=== PATIENT | female | born 1945 | race Caucasian/White ===

== ENCOUNTER 2020-08-20 14:55 | Emergency (ER) | payer MEDICARE, SELFPAY ==
[2020-08-20] VITALS (11 sets, daily range): BP systolic 153–159; BP diastolic 86–97; PULSE 73–97; RESP 16–22; TEMP 36.5; O2SAT 93–98
--- NOTE | ~2020-08-20 | XR_ITS ---
EXAMINATION: XR chest 2V EXAM DATE: 08/20/2020 16:27 INDICATION: Shortness of breath, hypertension. Asthma. Dizziness. COVID exposure. TECHNIQUE: Frontal and lateral projections of the chest obtained and reviewed. Comparison is made to prior examination from 02/15/2016. FINDINGS: There is large gastroesophageal hiatal hernia. There is small to moderate amount of ill-de fined bilateral airspace disease suspected, could be edema or acute infectious process. Prior chest x -ray was in 2016 which means this could also be development of chronic interstitial lung disease. No pneumothorax or pleural effusion. Cardiomediastinal silhouette is normal. IMPRESSION: Development of ill-defined bilateral opacities, could be acute infectious process or ashly a. Can't exclude this is chronic interstitial lung disease. Large hiatal hernia. Reviewed, dictated and finalized at location B. DARD MACHINE STITCHER IMPRESSION: Development of ill-defined bilateral opacities, could be acute infe ctious process or edema. Can't exclude this is chronic interstitial lung diseas e. Large hiatal hernia.
--- NOTE | 2020-08-20 15:50 | ECG_ITS ---
Measurements Intervals [place] Rate: 69 P: 19 TX: 135 QRS: 2 QRSD: 85 T: 6 QT: 415 QTc: 447 Interpretive Statements SINUS RHYTHM BASELINE ARTIFACT- I, II, III, AVL, AVF NORMAL ECG Electronically Signed On 08-20-2020 16:00:57 WATER RESOURCE SPECIALIST by José Manuel Mcwilliams D.O.
[2020-08-20 16:06] LABS: Basophils Percent Auto 0.1 % (0.2-1.2); Eosinophils Absolute Auto 0.1 K/mm3 (0-0.3); Eosinophils Percent Auto 0.6 % (0-4.4); Hematocrit 39.1 % (37.0-47.0); Hemoglobin 12.9 g/dL (12.0-15.0); Immature Granulocyte Absolute 0.04 K/mm3 (0.00-0.031); Immature Granulocyte Percent A 0.5 % (0-0.5); Lymphocytes Absolute Auto 1.13 K/mm3 (0.9-3.2); Mean Corpuscular Volume 84.8 fl (80-100); Mean Platelet Volume 8.4 fl (7.4-10.4); Monocytes Absolute Auto 0.4 K/mm3 (0.1-0.6); Monocytes Percent Auto 5.1 % (2.6-8.5); Neutrophils Absolute Auto 6.5 K/mm3 (1.3-6.7); Neutrophils Percent Auto 79.7 % (45.5-73.1); Platelet Count Result 271 k/mm3 (150-375); Red Blood Count 4.61 M/mm3 (4.2-5.4); Red Cell Distribution Width 13.2 % (11.5-14.5); White Blood Count 8.1 K/mm3 (4.5-10.0)
[2020-08-20 16:18] LABS: Anion Gap 6 mmol/L (8-16); Blood Urea Nitrogen 11 mg/dL (7-17); Calcium 8.9 mg/dL (8.4-10.2); Carbon Dioxide 32 mmol/L (22-30); Chloride 101 mmol/L (98-107); Estimated CRCL calculation 78 ml/min; Estimated Glomerular Filt Rate > 60; Glucose 121 mg/dL (65-105); Potassium 3.9 mmol/L (3.4-5.0); Sodium 139 mmol/L (137-145)
--- NOTE | 2020-08-20 19:09 | PCRCNOTE ---
PT. REFUSED TO BE STUCK AGAIN FOR AN ABG; DR. WILCOX NOTIFIED OF REFUSAL.
--- NOTE | 2020-08-20 19:42 | ED.SOB ---
HPI - SOB/Dyspnea General Chief Complaint: Shortness of Breath/Dyspnea Stated Complaint: sob Time Seen by Provider: 08/20/20 17:21 Source: patient Limitations: no limitations History of Present Illness HPI Narrative: Patient is 75 years old white female presents with intermittent shortness of breath over the last 2 days with exertion, fever up to 101 2 days ago. Currently feeling that her head full of stuff. Patient was tested positive for Covid 8 days ago. Patient denies any chest pain, nausea, vomiting, diarrhea, abdominal pain or back pain. Related Data Allergies Allergy/AdvReac Type Severity Reaction Status Date / Time meperidine Allergy Severe ITCHY Verified 08/20/20 19:01 venom-honey bee Allergy Severe unknown Verified 08/20/20 19:01 adhesive Allergy Mild TAPE= Verified 08/20/20 19:01 BLISTERS codeine Allergy Unknown unknown Verified 08/20/20 19:01 Review of Systems Review of Systems: Narrative: CONSTITUTIONAL: Denies fever, chills, or sweats. EYES: Denies visual changes, redness, or discharge. ENT: Denies rhinorrhea, congestion, sore throat, or otalgia. CARDIOVASCULAR: Denies chest pain, palpitations, or edema. RESPIRATORY: Denies cough or dyspnea. GASTROINTESTINAL: Denies abdominal pain, nausea, vomiting, or diarrhea. GENITOURINARY: Denies dysuria or hematuria. SKIN: Denies rash or itching. MUSCULOSKELETAL: Denies back pain, joint pain, or myalgia. NEUROLOGIC: Denies headache, numbness, or weakness. PSYCHIATRIC: Denies anxiety or depression. FOR[facility]LY [facility], [facility] Family History Family History Father Malignant neoplasm of prostate Family history of malignant neoplasm of esophagus Other Family history of cardiovascular disease Social History Social History Smoking status: Former smoker Tobacco type: cigarettes Second hand tobacco smoke exposure: No Smoking end date: 06/27/87 Alcohol intake: never Exam Narrative: Exam Narrative: General appearance: Well-developed, well-nourished Skin: Normal color Head: Normocephalic, nontraumatic Eyes: Clear conjunctiva ENT: Oropharynx normal, ears normal, nose normal Neck: Supple, nontender Chest and respiratory: Airway patent, no respiratory distress, no accessory muscle use Heart: Regular rate/rhythm Abdomen: Soft, nontender, no organomegaly, quiet bowel sounds Vascular: Normal peripheral pulses, normal capillary refill. Musculoskeletal: Normal range of motion, nontender back Neurologic: Alert and oriented ?3, METHODS AND PROCEDURES ANALYST is normal as tested, no gross motor deficit Course Course Emergency Course: Stable Vital Signs Vital signs: Vital Signs Temperature 36.5 C 08/20/20 15:45 Pulse Rate 73 08/20/20 15:45 Respiratory Rate 19 08/20/20 15:45 Blood Pressure 153/92 H 08/20/20 15:45 Pulse Oximetry 97 08/20/20 15:45 Temperature 36.5 C 08/20/20 15:45 Pulse Rate 97 08/20/20 18:57 Respiratory Rate 16 08/20/20 18:57 Blood Pressure 159/97 H 08/20/20 18:57 Pulse Oximetry 98 08/20/20 18:57 MDM - SOB/Dyspnea MDM Narrative Medical decision making narrative: Patient symptoms high likely secondary to COVID-19 infection. Labs, chest x-ray, COVID-19 test ordered. Further plan to follow Differential Diagnosis Differential diagnosis: Likely community acquired pneumonia and other (COVID-19 infection) Lab Data Result diagrams: 08/20/20 15:53 08/20/20 15:53 Labs: Lab Results 08/20/20 08/20/20 Range/Units 15:53 15:53 WBC 8.1 (4.5-10.0) K/mm3 RBC 4.61 (4.2-5.4) M/mm3 Hgb 12.9 (12.0-15.0) g/dL Hct 39.1 (37.0-47.0) %
--- NOTE | 2020-08-20 19:52 | PC.NURSE ---
Called RT regarding ABGs. RT states patient was stuck without success x2. Per Dr. Freeman, no more attempts needed to be made for ABG draw.
[2020-08-21 20:38] LABS: SARS-CoV-2 RNA PCR Positive
== END 2020-08-20 21:04 | disposition home or self-care (01) ==
PROVIDERS: Emergency Medicine; Emergency Provider Emergency Medicine; PCP Internal Medicine
DX: U07.1 COVID-19 (principal); R06.00 Dyspnea, unspecified; Z87.891 Personal history of nicotine dependence
CPT/HCPCS: 36415; 71046; 80048; 85025; 93005; 99284; C9803; U0003; U0005

== ENCOUNTER 2023-10-07 09:43 | Outpatient (CLI) | payer MEDICARE, SELFPAY ==
--- NOTE | 2023-10-07 10:41 | ECG_ITS ---
SEE SCANNED COPY FOR CONFIRMED REPORT MTDD
[2023-10-07 11:12] LABS: Basophils Percent Auto 0.3 % (0.2-1.2); Eosinophils Absolute Auto 0.3 K/mm3 (0-0.3); Eosinophils Percent Auto 3.1 % (0-4.4); Hematocrit 39.5 % (37.0-47.0); Hemoglobin 12.1 g/dL (12.0-15.0); Immature Granulocyte Absolute 0.04 K/mm3 (0.00-0.031); Immature Granulocyte Percent A 0.4 % (0-0.5); Lymphocytes Absolute Auto 3.09 K/mm3 (0.9-3.2); Lymphocytes Percent Auto 34.5 % (18.3-44.2); Mean Corpuscular HGB Conc 30.6 g/dl (32-36); Mean Corpuscular Hemoglobin 27.1 pg (26-34); Mean Corpuscular Volume 88.4 fl (80-100); Mean Platelet Volume 8.8 fl (7.4-10.4); Monocytes Absolute Auto 0.7 K/mm3 (0.1-0.6); Monocytes Percent Auto 8.2 % (2.6-8.5); Neutrophils Absolute Auto 4.8 K/mm3 (1.3-6.7); Neutrophils Percent Auto 53.5 % (45.5-73.1); Platelet Count Result 245 k/mm3 (150-375); Red Blood Count 4.47 M/mm3 (4.2-5.4); Red Cell Distribution Width 13.9 % (11.5-14.5)
[2023-10-07 11:24] LABS: Urine Cotinine NEGATIVE
[2023-10-07 11:26] LABS: Albumin Level 4.2 g/dL (3.5-5.1); Anion Gap 4 mmol/L (4-12); Blood Urea Nitrogen 18 mg/dL (7-17); Calcium 9.5 mg/dL (8.4-10.2); Carbon Dioxide 33 mmol/L (22-30); Chloride 100 mmol/L (98-107); Estimated Glomerular Filt Rate 54; Glucose 83 mg/dL (65-110); Potassium 4.2 mmol/L (3.4-5.0); Sodium 137 mmol/L (137-145)
[2023-10-07 11:30] LABS: Hemoglobin A1C 5.8 % (<5.7)
== END 2023-10-07 09:44 | disposition home or self-care (01) ==
LOC: ANHSURGERY 09:48
PROVIDERS: PCP Nurse Practitioner Family; Visit Provider Orthopaedic Surgery
DX: M17.12 Unilateral primary osteoarthritis, left knee (principal); Z01.818 Encounter for other preprocedural examination
CPT/HCPCS: 80048; 80307; 82040; 83036; 85025; 86850; 86900; 86901; 87081; 87147; 87181; 93005

== ENCOUNTER 2023-10-20 01:09 | Day surgery (SDC) | payer MEDICARE, SELFPAY ==
[2023-10-07 09:59] VITALS: BMI 33.5
--- NOTE | 2023-10-07 10:21 | PC.NURSE ---
Report to the Outpatient Waiting Room, entrance under the green pavilion located off [facility], at time __0900 on date _10/20/23 . Planned Procedure Time: _1100 . Time changes happen often and if your time is changed the preop area will call you the afternoon before. - You and your visitor will be asked to self-screen and do not enter if you have any COVID symptoms. - A mask is optional within the hospital at this time. Patients may have clear liquids (water, carbonated beverages, clear teas, apple juice) until 3 hours prior to surgery(8:00AM) with a maximum of 20 ounces. - No food from midnight until time of surgery - Infants may have breast milk until 4 hours before surgery, formula 6 hours prior to surgery. - Children will be allowed to drink immediately following surgery. If applicable, please bring a bottle or sippy cup to assist with drinking. Juice, water, soda, and popsicles are readily available. For infants on formula, please bring formula the day of surgery. Pacifiers are allowed. Take the following medications with a SIP of water the morning of surgery: _SYMBICORT INHALER,BUSPIRONE,EYE DROPS,CARVEDILOL,DULOXETINE,HYDROCODONE IF NEEDED FOR PAIN,PREGABALIN DO NOT STOP ANY OF YOUR OTHER PRESCRIPTION MEDICATIONS PRIOR TO SURGERY ?EXCEPT THE FOLLOWING Medications to discontinue per physician __HOLD MELOXICAM 7 DAYS PRE OP PER DR CROSS.LAST DOSE 10/12/23 MAY TAKE TYLENOL IF NEEDED FOR PAIN.HOLD ALL VITAMINS AND SUPPLEMENTS 3 DAYS PRE OP .LAST DOSE 10/16/23 TOTAL JOINT CLASS 10/12/23 AT 10 AM Please no make-up, nail vietnamese, hairspray, perfume, deodorant, or body powder the day of surgery. No jewelry (including any body piercings) or valuables the day of surgery, leave them at home. Please take a shower or bath the night before, or the morning of, surgery with an antibacterial soap. Wear comfortable, loose fitting clothing. Children are encouraged to wear pajamas. - Jewelry must be removed prior to entering the operating room. Rings and piercings that are not removed may be cut off. - The hospital will not accept responsibility for valuables. - Please leave all valuables, including medications, at home the day of surgery. If you are going home after surgery, a licensed tractor driver must drive you home. - NO public transportation without another adult if you receive anesthesia. - We recommend that an adult stay with you for 24 hours following discharge. - We also recommend that you do not drive, make important decision, drink alcoholic beverages, or take any drugs that were not prescribed by your health care provider for at least 24 hours after your discharge time. Follow any additional instructions given to you from your surgeon. If you or anyone in your household have experienced Covid symptoms in the past week, please notify your surgeon or the nurse liaison at the phone number below for possible testing. VERBAL AND WRITTEN instructions given to __PATIENT AND SPOUSE STEVE and asked if any additional questions and then verbalized understanding. Patient advised to call surgeon office or pre surgery nurse liaison [phone] if any additional questions.
[2023-10-07 10:40] VITALS: BP 114/67; PULSE 68; RESP 18; TEMP 37.1; O2SAT 97
--- NOTE | 2023-10-19 14:47 | PM.IMHP ---
H&P: HPI History of Present Illness Date/Time: 10/19/23 14:47 Chief Complaint: severe lateral compartment osteoarthritis left knee with grade 3 valgus deformity measuring 21?. Narrative: Patient is a 78-year-old female with longstanding history of lateral compartment osteoarthritis of her left knee. She has been taking Advil on a regular basis and hydrocodone for chronic lower back pain and her left knee pain had been tolerable but over the past year these become more severe and her fear of falling has been significant because the knee is now giving out into valgus. With respect to her back she has no evidence of neurologic deficit. She does have history of peripheral neuropathy and reactive airway disease and history of iron deficiency anemia which has been treated. She quit smoking 1979. 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 Other hyperlipidemia Peripheral neuropathic pain Reactive airway disease without complication Visual field defect Surgical History Surgical History (Updated 10/11/23 @ 15:28 by Geneva Maria CMA) H/O shoulder surgery right History of ankle surgery right Presence of left artificial knee joint Family History Family History Father Malignant neoplasm of prostate Family history of malignant neoplasm of esophagus Other Family history of cardiovascular disease Social History Social History (Updated 09/28/23 @ 13:14 by Jessica Perales CMA) Smoking packs per day: 1 Smoking cigarettes per day: 20.0 Years smoked: 12 Smoking pack-years: 12.00 Smoking status: Former smoker Tobacco type: cigarettes Second hand tobacco smoke exposure: No Smoking end date: 06/27/87 Additional smoking assessment comments: DENIES ANY FORM OF TOBACCO USE Alcohol intake: never Substance use: never Substance use type: does not use Do You Feel Safe in your Home?: Yes Lack of Transportation: No Lack of Food: Never True Current Housing: I Have Housing Concerned About Future Housing: No Difficulty Paying Gas/Electric Bills: Decline to Answer Difficulty Paying for Meds: No Currently Unemployed: No Education: High School Diploma/GED Difficulty w/ Childcare or Family Care: No Living arrangements: with family Occupation/Education: retired Spiritual care concerns: No Meds Home Medications and Allergies Home Medications Medication Instructions Recorded Confirmed Type furosemide 20 mg tablet (Lasix) 10 mg PO QAM PRN edema #30 tabs 02/22/23 10/07/23 Rx rosuvastatin 10 mg tablet 10 mg PO DAILY #90 tabs 05/16/23 10/07/23 Rx pantoprazole 40 mg tablet,delayed See Rx Instructions .Route 06/28/23 10/07/23 Rx release .COMPLEX #90 tabs meloxicam 15 mg tablet See Rx Instructions .Route 07/12/23 10/07/23 Rx .COMPLEX #90 tabs albuterol sulfate 90 mcg/actuation 2 inh inhalation Q4-6H PRN 08/04/23 10/07/23 Rx aerosol inhaler (ProAir HFA) shortness of breath or wheezing #18 grams buspirone 7.5 mg tablet 7.5 mg PO BID #180 tabs 08/15/23 10/07/23 Rx carvedilol 12.5 mg tablet 12.5 mg PO TID #90 tabs 08/23/23 10/07/23 Rx cyclobenzaprine 10 mg tablet 10 mg PO TID PRN muscle spasm #90 08/29/23 10/07/23 Rx tabs duloxetine 60 mg capsule,delayed 60 mg PO BID #180 caps 09/05/23 10/07/23 Rx release budesonide-formoterol HFA 160 2 puff inhalation Q12H #10.2 grams 09/27/23 10/07/23 Rx mcg-4.5 mcg/actuation aerosol inhaler (Symbicort) cholecalciferol (vitamin D3) 25 25 mcg PO DAILY #90 caps 09/30/23 10/07/23 Rx mcg (1,000 unit) capsule hydrocodone 10 mg-acetaminophen 1 tablet PO Q8H pain #90 ta
[2023-10-20] VITALS (14 sets, daily range): BP systolic 109–158; BP diastolic 61–102; PULSE 68–101; RESP 11–20; TEMP 36.2–36.8; O2SAT 93–98; BMI 33.7
--- NOTE | ~2023-10-20 | XR_ITS ---
EXAMINATION: [id number] DATE: 10/20/2023 16:59 INDICATION: Postoperative evaluation following left total knee arthroplasty. TECHNIQUE: Anteroposterior and lateral views of the left knee were obtained. COMPARISON: None. FINDINGS: Cemented left total knee arthroplasty without patellar resurfacing appears well seated and in near an atomic alignment. No fractures identified. Expected postoperative subcutaneous and intra-articular g as. IMPRESSION: 1. Left total knee arthroplasty, negative for postoperative purposes. Reviewed, dictated and finalized at location A.
[2023-10-20] MEDS: ACETAMINOPHEN 500 MG TABLET 1000 MG PO ×2 (08:48→20:13)
[2023-10-20] MEDS: LACTATED RINGERS 1,000 ML 30 ML IV CONT ×2 (08:55→16:39)
[2023-10-20] MEDS: VANCOMYCIN 1,500 MG/NS 500 ML 1,500 MG/500 ML BAG 250 MG IVPB (09:08)
--- NOTE | 2023-10-20 09:53 | WPDANESEPPF ---
Anes - Initial Pre Proc Eval Procedure: Operation Date: 10/20/23 10:30 Proposed Procedures p Left Total Knee Arthroplasty - Brooks Arenas MD Date/Time: 10/20/23 09:53 Surgeon: Brooks Arenas MD Pre Op Diagnosis: oa left knee Patient Data Age: 78 Gender: F Height: 1.65 m Weight: 91.3 kg Last Vital Signs Temp 98.2 F 10/20/23 08:42 Pulse 68 10/20/23 08:42 Resp 16 10/20/23 08:42 BP 133/69 10/20/23 08:42 Pulse Ox 97 10/20/23 08:42 O2 Del Method Room Air 10/20/23 08:42 Allergies Allergy/AdvReac Type Severity Reaction Status Date / Time meperidine Allergy Severe ITCHY Verified 10/20/23 08:42 venom-honey bee Allergy Severe Swelling Verified 10/20/23 08:42 adhesive Allergy Mild TAPE= Verified 10/20/23 08:42 BLISTERS Home Medications Medication Instructions Recorded Confirmed Type furosemide 20 mg tablet (Lasix) 10 mg PO QAM PRN edema #30 tabs 02/22/23 10/20/23 Rx rosuvastatin 10 mg tablet 10 mg PO DAILY #90 tabs 05/16/23 10/20/23 Rx pantoprazole 40 mg tablet,delayed See Rx Instructions .Route 06/28/23 10/20/23 Rx release .COMPLEX #90 tabs meloxicam 15 mg tablet See Rx Instructions .Route 07/12/23 10/20/23 Rx .COMPLEX #90 tabs albuterol sulfate 90 mcg/actuation 2 inh inhalation Q4-6H PRN 08/04/23 10/20/23 Rx aerosol inhaler (ProAir HFA) shortness of breath or wheezing #18 grams buspirone 7.5 mg tablet 7.5 mg PO BID #180 tabs 08/15/23 10/20/23 Rx carvedilol 12.5 mg tablet 12.5 mg PO TID #90 tabs 08/23/23 10/20/23 Rx cyclobenzaprine 10 mg tablet 10 mg PO TID PRN muscle spasm #90 08/29/23 10/20/23 Rx tabs duloxetine 60 mg capsule,delayed 60 mg PO BID #180 caps 09/05/23 10/20/23 Rx release budesonide-formoterol HFA 160 2 puff inhalation Q12H #10.2 grams 09/27/23 10/20/23 Rx mcg-4.5 mcg/actuation aerosol inhaler (Symbicort) cholecalciferol (vitamin D3) 25 25 mcg PO DAILY #90 caps 09/30/23 10/20/23 Rx mcg (1,000 unit) capsule hydrocodone 10 mg-acetaminophen 1 tablet PO Q8H pain #90 tabs 10/06/23 10/20/23 Rx 325 mg tablet carboxymethylcellulose sodium 1 % 1 drp EACH EYE QID 10/07/23 10/20/23 History eye liquid gel drops vitamins A,C,K-lqkt-qkyclm 2,148 2 tablet PO BID 10/07/23 10/20/23 History mcg-113 mg-45 mg-17.4 mg tablet (PreserVision AREDS) mupirocin 2 % topical ointment 1 applic topical BID #22 grams 10/12/23 10/20/23 Rx pregabalin 50 mg capsule 50 mg PO BID #60 caps 10/14/23 10/20/23 Rx Patient hx anesthesia problems: none Family hx anesthesia problems: none Results Review: All pre-operative results and documents have been reviewed as part of the pre-operative evaluation. 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 Other hyperlipidemia Peripheral neuropathic pain Reactive airway disease without complication Visual field defect Surgical History Surgical History H/O shoulder surgery right History of ankle surgery right Presence of left artificial knee joint Family History Family History Father Malignant neoplasm of prostate Family history of malignant neoplasm of esophagus Other Family history of cardiovascular disease Social History Social History Smoking packs per day: 1 Smoking cigarettes per day: 20.0 Years smoked: 12 Smoking pack-years: 12.00 Smoking status: Former smoker Tobacco type: cigarettes Second hand tobacco smoke exposure: No Smoking end date: 06/27/87 Additional smoking assessment comments: D
--- NOTE | 2023-10-20 10:10 | WPDHPUPDATE1 ---
History and Physical Update Update Date/Time: 10/20/23 10:10 History and Physical has been reviewed, including an updated exam of the patient. There are NO changes in the patient's condition. Risks, benefits, and alternatives have been discussed and questions answered. Patient agrees to proceed with procedure.
[2023-10-20] MEDS: TRANEXAMIC ACID 1,000MG/ISO100 1,000 MG/100 ML BAG 200 MG IVPB (10:16)
[2023-10-20] MEDS: ceFAZolin SODIUM 1 GM VIAL 4 GM (10:50)
[2023-10-20] MEDS: ceFAZolin 2 GM/D5W 50 ML 2 GM/50 ML BAG IVPB (11:13)
[2023-10-20] MEDS: ceFAZolin SODIUM 1 GM VIAL 2 GM IV PUSH (15:09)
[2023-10-20] MEDS: SODIUM CHLORIDE 0.9% IV 37.7 ML, MORPHINE SULFATE INJ (*CRX) 2 MG, ROPivacaine HCL 1% 2... INFILTRATE (15:09)
[2023-10-20] MEDS: TRANEXAMIC ACID 1,000 MG/10 ML AMPUL 1000 MG IV PUSH (15:22)
--- NOTE | 2023-10-20 16:46 | W.PM.PROC2 ---
Procedure Note - Detailed Date of Procedure 10/20/23 Pre-op Diagnosis oa left knee Post-op Diagnosis Same Procedure Performed Severe lateral compartment osteoarthritis with 10 degree flexion contracture and 21 degree anatomic axis valgus alignment on AP x-ray, left knee Surgeon Brooks Arenas MD Wirer Greyson Anesthesia General Description of Procedure Patient was brought to the operating room and general anesthesia was administered. Under anesthesia she had fixed 10 degree flexion contracture and valgus deformity in the left knee. Left leg was prepped draped usual fashion. She received 2 g of Ancef weight based vancomycin 1 g of tranexamic acid preoperatively. Limb was exsanguinated tourniquet elevated to 300 mmHg. A 7 in longitudinal midline incision was used. Vastus medialis splitting approach utilized. Infrapatellar and suprapatellar fat pads were excised quadriceps synovectomy carried out. Minimal lateral facetectomy performed. The articular cartilage was intact with mild diffuse chondromalacia on the patella and I felt it was suitable for non re surfacing. Guide jordi was inserted down the femoral canal after aspiration of canal contents using the 5 degree valgus cutting bushing 9 mm of bone removed the distal femur. Next the tibial plateau was cut. We removed about 5 mm from the center of the medial tibial plateau which gave us a skim cut just underneath the low point of the wear area of the lateral plateau. Cut was made perpendicular to the axis of the tibia. The meniscal remnants were excised the PCL was recessed from the femur and provisional posterior central capsular release from the distal femur was performed. Flexion gap measured 8 mm medially and 12 mm the sizing guide was applied to distal femur set at 5? of external rotation which matched Whitesides line. Posterior referencing pinholes were placed and the femur was cut to a size 65 vanguard. We were quite tight laterally in extension as predicted and IT band release was carried out from lateral margin of the patellar tendon to the popliteus tendon and the posterolateral corner capsule released level of the tibial cut preserving the lateral collateral ligament and the popliteus tendon. With this we were still clearly too tight in extension laterally to except 10 poly trial. Additional 2 mm of bone removed the distal femur. Posterior femoral osteophytes removed and a thorough posterior capsule release was performed as with flexion contracture. The the tibia was sized to a 71 placed to proper rotation and punched with the keel punch. We removed an additional mm of bone from the distal femur and trialed with the 10 insert. The knee came out to full extension with 1 mm of lateral opening but 6 mm of medial opening I felt this was too unstable to accept and as anticipated we needed to proceed with preparation for a constrained femur and poly insert. The 360 femur trial was placed on the femur and it was pinned in place and the intercondylar box for the SSK was prepared and the boss Reamer used to accept a 40 mm. Jordi extension attached to femoral component. We trialed with the 10 SSK trial. The came out to full extension with a mm of play laterally and gravity flexion of 125. However at 70? and 50? of flexion there was too much anterior play. We trialed with the 12 and this lacked 2 or 3? of extension with a barely positive bounce. The appropriate stability though and mid flexion and flexion and still had gravity flexion to 125. I felt the 12 was a better choice. We reapplied the distal femoral cutting block removed 1 more mm of bone from the distal femur and revisited the chamfer cuts and the intercondylar box roof cut and trialing again with the 12 SSK trial the knee came just to full extension with negative bounce. No play laterally but at 5? of flexion there is a mm play laterally and this time it 70 and 50? there is anterior play but no anterior subluxation. We had put the mariusz
[2023-10-20] MEDS: fentaNYL CITRATE INJ (*CRX) 100 MCG/2 ML VIAL 25 MCG IV PUSH ×8 (17:20→17:52)
--- NOTE | 2023-10-20 17:20 | PM.PNORT ---
Progress Note: A&P Assessment and Plan (1) Osteoarthritis of left knee: Qualifiers: Osteoarthritis type: primary Qualified Code(s): M17.12 - Unilateral primary osteoarthritis, left knee Code(s): M17.12 - Unilateral primary osteoarthritis, left knee Status: Acute Subjective Subjective Date/Time Seen: 10/20/23 17:20 Exam Extrem: Other: In the recovery room at 5:20 p.m. patient has full active dorsiflexion of her ankle and toes and denies numbness light touch testing in the foot and ankle. Objective Data Vital Signs Vital Signs: Vital Signs - 24 hr 10/20/23 08:42 10/20/23 16:39 10/20/23 16:50 Temperature 36.8 C 36.2 C L Pulse Rate 68 95 98 Respiratory Rate 16 17 20 Blood Pressure 133/69 144/81 H 154/84 H Pulse Oximetry 97 97 97 Oxygen Delivery Room Air Simple Face Mask Simple Face Mask Oxygen Flow Rate 8 8 10/20/23 17:05 Temperature Pulse Rate 97 Respiratory Rate 20 Blood Pressure 156/87 H Pulse Oximetry 98 Oxygen Delivery Simple Face Mask Oxygen Flow Rate 8 Intake/Output Intake/Output: Intake & Output 10/17/23 10/18/23 10/19/23 10/20/23 23:59 23:59 23:59 23:59 Intake Total 150 Balance 150 Meds/Results Medications: Active Medications Generic Name Dose Route Start Last Admin Trade Name Freq PRN Reason Stop Dose Admin Fentanyl Citrate 25 mcg 10/19/23 14:08 Fentanyl Citrate Inj (*Crx) 100 Mcg/2 Ml Vial IV PUSH Q2M PRN Pain Lactated Ringer's 1,000 mls @ 30 mls/hr 10/19/23 14:10 10/20/23 08:55 Lr - Lactated Ringers Iv IV CONT 30 mls/hr .Q24H VIOLETA Administration Lactated Ringer's 1,000 mls @ 30 mls/hr 10/19/23 14:10 Lr - Lactated Ringers Iv IV CONT .Q24H VIOLETA Ondansetron HCl 4 mg 10/19/23 14:08 Ondansetron Inj 4 Mg/2 Ml Vial IV PUSH ONCE PRN Nausea Radiology Results: ITS Impressions Knee X-Ray 10/20/23 17:03 IMPRESSION: 1. Left total knee arthroplasty, negative for postoperative purposes.
[2023-10-20] MEDS: HYDROmorphone HCL INJ (*CRX) 1 MG/ML SYR 0.5 MG IV PUSH ×4 (18:10→19:00)
[2023-10-20] MEDS: ceFAZolin 1 GM/NS 50 ML 1 GM/50 ML BAG IVPB (20:12)
[2023-10-20] MEDS: oxyCODONE HCL (*CRX) 5 MG TAB IR PO (20:12)
[2023-10-20] MEDS: DULoxetine HCL 60 MG CAPSULE.DR PO (20:13)
[2023-10-20] MEDS: PREGABALIN (*CRX) 50 MG CAPSULE PO (20:13)
[2023-10-20] MEDS: carvediloL 12.5 MG TABLET PO (20:13)
[2023-10-20] MEDS: busPIRone HCL 2.5 MG, busPIRone HCL 5 MG 7.5 MG PO (20:14)
[2023-10-20] MEDS: SENNA/DOCUSATE SODIUM TABLET 2 TAB PO (20:14)
[2023-10-20] MEDS: ARTIFICIAL TEARS OPHTH SOLN 15 ML BOTTLE 1 DROP EACH EYE (20:15)
[2023-10-20] MEDS: MUPIROCIN 2% OINT 22 GM TUBE 1 APPLIC TOPICAL (20:15)
--- NOTE | 2023-10-20 20:52 | ADMGEN ---
This patient, Maddie Rodriguez, was admitted to Medical Room 343-01. Patient/family oriented to hospital policies and general routines including ID bracelet, bed and alarms, visiting hours, pain management, procedures, bathroom and other care routines, personal items, smoking policy, room service/diet, and visiting hours. Information on how to activate the Rapid Response Team has been discussed. Patient/Family are encouraged to report perceived risks to care and to ask questions if they do not understand what they are told or what they should do.
[2023-10-20] MEDS: VANCOMYCIN 1,000 MG/NS 250 ML 1,000 MG/250 ML BAG 250 MG IVPB (21:05)
[2023-10-20] MEDS: FLUTICASONE/SALMETEROL 115-21 MCG INHALER 1 PUFF 2 PUFF INHALATION (22:12)
[2023-10-21] MEDS: oxyCODONE HCL (*CRX) 5 MG TAB IR PO ×5 (00:06→17:10)
[2023-10-21 01:14] VITALS: BP 105/59; PULSE 92; RESP 21; TEMP 37.1; O2SAT 100
[2023-10-21] MEDS: ACETAMINOPHEN 500 MG TABLET 1000 MG PO ×3 (03:07→13:05)
[2023-10-21] MEDS: ceFAZolin 1 GM/NS 50 ML 1 GM/50 ML BAG IVPB ×2 (03:07→13:05)
[2023-10-21 06:00] VITALS: BP 109/56; PULSE 95; RESP 16; TEMP 36.6; O2SAT 95
--- NOTE | 2023-10-21 07:34 | WPDANESPN ---
Anes - Prog Note Post-Op Date/Time: 10/21/23 07:34 Cardiovascular status: normal Respiratory status: normal Airway patency: baseline Mental status: baseline Post-Op hydration status: normal Vital Signs: Last Vital Signs Temp 97.9 F 10/21/23 06:00 Pulse 95 10/21/23 06:00 Resp 16 10/21/23 06:00 BP 109/56 L 10/21/23 06:00 Pulse Ox 95 10/21/23 06:00 O2 Del Method Nasal Cannula 10/20/23 22:37 O2 Flow Rate 2 10/20/23 22:37 Pain Score (VAS): 0/10 I/O: Intake & Output 10/20/23 10/20/23 10/21/23 15:59 23:59 07:59 Intake Total 150 300 650 Balance 150 300 650 Post-procedural complaints: none Patient Feedback: Patient satisfied with anesthetic care.
[2023-10-21 08:09] LABS: Hematocrit 29.5 % (37.0-47.0); Hemoglobin 9.4 g/dL (12.0-15.0); Mean Corpuscular HGB Conc 31.9 g/dl (32-36); Mean Corpuscular Hemoglobin 27.5 pg (26-34); Mean Corpuscular Volume 86.3 fl (80-100); Mean Platelet Volume 8.7 fl (7.4-10.4); Platelet Count Result 204 k/mm3 (150-375); Red Blood Count 3.42 M/mm3 (4.2-5.4); Red Cell Distribution Width 14.3 % (11.5-14.5); White Blood Count 17.9 K/mm3 (4.5-10.0)
[2023-10-21 08:20] LABS: Anion Gap 2 mmol/L (4-12); Blood Urea Nitrogen 16 mg/dL (7-17); Calcium 8.3 mg/dL (8.4-10.2); Carbon Dioxide 30 mmol/L (22-30); Chloride 105 mmol/L (98-107); Estimated CRCL calculation 65 ml/min; Estimated Glomerular Filt Rate > 60; Glucose 128 mg/dL (65-110); Potassium 3.7 mmol/L (3.4-5.0); Sodium 137 mmol/L (137-145)
[2023-10-21] MEDS: FLUTICASONE/SALMETEROL 115-21 MCG INHALER 1 PUFF 2 PUFF INHALATION (08:52)
[2023-10-21 08:54] VITALS: PULSE 100; RESP 20; O2SAT 95
[2023-10-21] MEDS: OPTI-GEN TAB 2 TABLET PO ×2 (09:35→17:08)
[2023-10-21] MEDS: PREGABALIN (*CRX) 50 MG CAPSULE PO ×2 (09:35→17:09)
[2023-10-21] MEDS: ROSUVASTATIN 10 MG TABLET PO (09:35)
[2023-10-21] MEDS: APIXABAN 2.5 MG TABLET PO (09:35)
[2023-10-21] MEDS: CHOLECALCIFEROL 1,000 UNITS TABLET 1000 UNITS PO (09:35)
[2023-10-21] MEDS: PANTOPRAZOLE 40 MG TABLET PO (09:35)
[2023-10-21] MEDS: SENNA/DOCUSATE SODIUM TABLET 2 TAB PO ×2 (09:35→17:10)
[2023-10-21] MEDS: DULoxetine HCL 60 MG CAPSULE.DR PO (09:35)
[2023-10-21] MEDS: CELECOXIB 200 MG CAPSULE PO (09:35)
[2023-10-21] MEDS: polyethylene glycoL 3350 17 GM POWD.PACK PO (09:36)
[2023-10-21] MEDS: busPIRone HCL 2.5 MG, busPIRone HCL 5 MG 7.5 MG PO (09:36)
[2023-10-21] MEDS: VANCOMYCIN 1,000 MG/NS 250 ML 1,000 MG/250 ML BAG 250 MG IVPB (09:37)
[2023-10-21 09:38] VITALS: PULSE 95
[2023-10-21] MEDS: carvediloL 25 MG TABLET PO (09:38)
[2023-10-21] MEDS: MUPIROCIN 2% OINT 22 GM TUBE 1 APPLIC TOPICAL ×2 (09:38→17:10)
[2023-10-21] MEDS: ARTIFICIAL TEARS OPHTH SOLN 15 ML BOTTLE 1 DROP EACH EYE ×3 (09:38→17:10)
[2023-10-21] MEDS: CEPHALEXIN 500 MG CAPSULE PO ×2 (13:05→17:09)
[2023-10-21 14:00] VITALS: BP 102/69; PULSE 85; RESP 16; TEMP 36.6; O2SAT 98
--- NOTE | 2023-10-21 16:09 | PM.DS ---
DS: Admitting Diagnosis Discharge Date 10/21/2023 Admitting Diagnosis Severe lateral compartment osteoarthritis left knee with grade 3 valgus deformity. She is now status post left total knee arthroplasty DS: Summary Hospital Course Hospital Course: Patient was admitted overnight following left total knee arthroplasty yesterday. She has done very well postoperatively and her pain was well controlled overnight. She has been very cheerful and did well walking in physical therapy today. Her dressing is dry without any evidence of bleeding. She has only mild swelling around the knee no swelling in the calf or foot. She has intact sensation and motor function left foot. She does a straight leg raise very easily today. Her laboratory studies this morning so hemoglobin of 9.4 indicating acute blood loss anemia. She has not been symptomatic from that. BUN 16 creatinine 0.7. She feels quite comfortable and confident that she is safe to go home today and we will discharge her. We are sending her home on Keflex for extended antibiotic prophylaxis and she did have heavy growth of Staph aureus oxacillin sensitive on her nasal swab preoperatively. She has been decolonization prior to her admission. Eliquis for DVT prophylaxis for 2 weeks followed by baby aspirin twice daily for 4 weeks was discussed. We will have her take Celebrex 100 mg daily for pain control and once she is off the Eliquis we can increase this to 200 mg twice daily. She will avoid the locks a cam that she takes and also the hydrocodone 10 mg that she takes 3 times a day chronically. We are sending her home on oxycodone and scheduled Tylenol for hip pain control. Time Spent with Patient Time attestation: Total time spent providing and/or coordinating discharge services: DS: Data Data Completed and Pending Labs on day of discharge: Labs from last 24 hours 10/21/23 08:04 WBC 17.9 H RBC 3.42 L Hgb 9.4 L Hct 29.5 L MCV 86.3 MCH 27.5 MCHC 31.9 L RDW 14.3 Plt Count 204 MPV 8.7 Sodium 137 Potassium 3.7 Chloride 105 Carbon Dioxide 30 Anion Gap 2 L BUN 16 Creatinine 0.70 Estim Creat Clear Calc 65 Estimated GFR > 60 Glucose 128 H Calcium 8.3 L Discharge Plan Discharge Patient Disposition: Home, Self-Care Discharge Instructions: JASKARAN CROSS M.D [facility] [address] [place] [address] [address] [place] [address] POST-OPERATIVE DISCHARGE INSTRUCTIONS TOTAL KNEE ARTHROPLASTY 1. When resting, do not rest in the chair.When resting, lie on your back, with back flat on the couch or bed, with leg elevated above heart to minimize swelling. You may put a pillow under your head. . Significant swelling could indicate a blood clot and if this occurs call the office (or go to the ER) to have a venous ultrasound. Therefore, do not rest in a chair. 2. At least five times a day spend several minutes stretching your knee into flexion while sitting in the chair and also stretching your knee out straight The abilities to bend your knee fulling and straighten your knee fully are two most important knee functions to focus on during your recovery. 3. It is ok to sit in chair to eat, use the toilet and receive a guest and to do your stretching exercises, but, sitting in a chair will cause your leg to swell. Therefore, avoid additional time sitting in the chair. and don't rest in the chair. 4. Wound Care: Nursing will give you an additional Mepilex dressing at the time of discharge. Patient to remove the dressing and apply a new Mepilex dressing at home 7 days after surgery and leave the dressing on until seen in office. It is normal to see a small amount of blood on the silver pad of the Mepilex dressing. Its designed to hold small spots of blood. However, if the blood reaches the edge of the pad up to the boarder of the clear membrane that surrounds the pad, the pad is saturated and the Mepilex dressing should be r
== END 2023-10-21 18:00 | disposition home or self-care (01) ==
LOC: ANHSURGERY 08:16 → ANH3MED 19:27
PROVIDERS: PCP Nurse Practitioner Family; Visit Provider Orthopaedic Surgery
PROC: (CPT 27447; principal; 2023-10-20 10:30)
DX: M17.12 Unilateral primary osteoarthritis, left knee (principal); I10 Essential (primary) hypertension; E78.49 Other hyperlipidemia; K21.9 Gastro-esophageal reflux disease without esophagitis; G62.9 Polyneuropathy, unspecified; J45.909 Unspecified asthma, uncomplicated; F32.A Depression, unspecified; H35.30 Unspecified macular degeneration; Z87.891 Personal history of nicotine dependence; E66.9 Obesity, unspecified; Z68.33 Body mass index [BMI] 33.0-33.9, adult; Z79.51 Long term (current) use of inhaled steroids
CPT/HCPCS: 27447; 36415; 73560; 80048; 80307; 82040; 83036; 85025; 85027; 86850; 86900; 86901; 87081; 87147; 87181; 93005; 94640; 97110; 97161; 97165; A9270; C1713; C1776; J0171; J0690; J1100; J1170; J1885; J2250; J2270; J2405; J2704; J2795; J3010; J3370; J7120

== ENCOUNTER 2023-10-26 15:20 | Emergency (ER) | payer MEDICARE, SELFPAY ==
--- NOTE | ~2023-10-26 | XR_ITS ---
EXAMINATION: XR abdomen/kub 1V DATE: 10/26/2023 15:52 INDICATION: Nausea. Diarrhea. Bloating. TECHNIQUE: A supine view of the abdomen on 2 radiographs was obtained. COMPARISON: CT abdomen and pelvis 06/25/2016 FINDINGS: There is a large hiatal hernia. There is dilated proximal small bowel. The colon is normal in caliber. There are phleboliths in left pelvis. IMPRESSION: 1. Dilated proximal small bowel, consistent with adynamic ileus versus small bowel obstruction. 2. Large hiatal hernia. Reviewed, dictated and finalized at location A. IMPRESSION: 1. Dilated proximal small bowel, consistent with adynamic ileus versus small cassy wel obstruction. 2. Large hiatal hernia.
--- NOTE | ~2023-10-26 | CT_ITS ---
EXAMINATION: CT abdomen pelvis w con DATE: 10/26/2023 17:05 INDICATION: Obstruction TECHNIQUE: Computed tomography (CT) of the abdomen and pelvis was performed with 100 CC Omnipaque 350 intravenous contrast. Automated exposure control and iterative reconstruction technique were employe d. Exam dose: 522.63 mGy-cm total exam DLP. COMPARISON: 06/25/2016 CT abdomen and pelvis FINDINGS: The lung bases are clear of consolidation. There is a large sliding hiatal hernia with air- fluid level. Heart size is within normal range. No pericardial or pleural effusion. There are bilateral partially peripherally calcified breast implants. The liver, gallbladder, bile ducts, pancreas, pancreatic duct, adrenal glands, spleen are unremarkabl e. 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 There are occasional left renal cysts measuring up to 1.7 cm dimension. No urinar y tract calculus or hydroureteronephrosis. The urinary bladder is unremarkable. Enlarged uterus with central heterogeneous mixed hypodensity and isodensity. Differential diagnosis includes endometrial carcinoma versus fibroid change. Consider further evaluat ion with pelvic ultrasound. There is normal caliber of the abdominal aorta. No intraperitoneal or retroperitoneal or pelvic mass lesion or adenopathy or ascites is noted otherwise. Borderline dilatation of the duodenum with fluid levels. There is nonspecific mild proximal jejunal d ilatation measuring up to 3.4 cm diameter Otherwise no bowel obstruction, bowel wall thickening, pneumatosis or intraperitoneal free air is marina dent. No suspicious osteolytic or osteoblastic lesions are noted. There is severe degenerative disc disease throughout the lower thoracic and lumbar spine IMPRESSION: Large sliding hiatal hernia with air-fluid level Fluid levels in the duodenum, mild dilatation of the duodenum and proximal jejunum without apparent t ransition point. Consider mild adynamic ileus. No bowel obstruction or intraperitoneal free air is no dayna otherwise Prominent mixed hypodense and isodense endometrial area in the uterus suggesting possible endometrial carcinoma. Differential diagnosis includes fibroid change. 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 Reviewed, dictated and finalized at location A. IMPRESSION: Large sliding hiatal hernia with air-fluid level Fluid levels in the duodenum, mild dilatation of the duodenum and proximal jeju num without apparent transition point. Consider mild adynamic ileus. No bowel o bstruction or intraperitoneal free air is noted otherwise Prominent mixed hypodense and isodense endometrial area in the uterus suggestin g possible endometrial carcinoma. Differential diagnosis includes fibroid johnson e. 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
[2023-10-26 15:28] VITALS: BP 128/107; PULSE 105; RESP 16; TEMP 36.6; O2SAT 100
[2023-10-26] MEDS: SODIUM CHLORIDE 0.9% IV 1,000 ML 999 ML IV CONT (15:46)
[2023-10-26] MEDS: ONDANSETRON INJ 4 MG/2 ML VIAL IV PUSH ×2 (15:46→18:29)
[2023-10-26 15:50] LABS: Basophils Percent Auto 0.3 % (0.2-1.2); Eosinophils Absolute Auto 0.2 K/mm3 (0-0.3); Eosinophils Percent Auto 1.7 % (0-4.4); Hematocrit 35.5 % (37.0-47.0); Hemoglobin 11.2 g/dL (12.0-15.0); Immature Granulocyte Percent A 0.8 % (0-0.5); Lymphocytes Absolute Auto 1.78 K/mm3 (0.9-3.2); Mean Corpuscular HGB Conc 31.5 g/dl (32-36); Mean Corpuscular Hemoglobin 26.7 pg (26-34); Mean Corpuscular Volume 84.7 fl (80-100); Mean Platelet Volume 8.8 fl (7.4-10.4); Monocytes Absolute Auto 0.9 K/mm3 (0.1-0.6); Monocytes Percent Auto 7.8 % (2.6-8.5); Neutrophils Absolute Auto 8.9 K/mm3 (1.3-6.7); Neutrophils Percent Auto 74.4 % (45.5-73.1); Platelet Count Result 403 k/mm3 (150-375); Red Blood Count 4.19 M/mm3 (4.2-5.4); Red Cell Distribution Width 14.6 % (11.5-14.5); White Blood Count 11.9 K/mm3 (4.5-10.0)
[2023-10-26 16:01] LABS: Lactic Acid Reflex 1.3 mmol/L (0.7-2.0)
[2023-10-26 16:05] LABS: Alanine Aminotransferase 26 U/L (6-35); Albumin Level 4.4 g/dL (3.5-5.1); Alkaline Phosphatase 77 U/L (38-126); Anion Gap 7 mmol/L (4-12); Aspartate Amino Transferase 45 U/L (14-36); Bilirubin,Total 1.1 mg/dL (0.2-1.3); Blood Urea Nitrogen 7 mg/dL (7-17); Calcium 9.5 mg/dL (8.4-10.2); Carbon Dioxide 25 mmol/L (22-30); Chloride 104 mmol/L (98-107); Estimated CRCL calculation 87 ml/min; Estimated Glomerular Filt Rate > 60; Glucose 125 mg/dL (65-110); Lipase 43 U/L (23-300); Potassium 3.8 mmol/L (3.4-5.0); Sodium 136 mmol/L (137-145)
--- NOTE | 2023-10-26 16:23 | ED.GENADULT ---
HPI - General Adult General Chief complaint: Nausea/Vomiting/Diarrhea <Deric Rajan MD - Last Filed: 10/26/23 16:26> Stated complaint: decreased PO intake s/p surgery <Deric Rajan MD - Last Filed: 10/26/23 16:26> Time Seen by Provider: 10/26/23 15:23 <Deric Rajan MD - Last Filed: 10/26/23 16:26> History of Present Illness HPI narrative: Patient is a 78-year-old female who presents ER with nausea vomiting. Patient recently underwent left total knee replacement. She was discharged home and has been having vomiting and fullness in her epigastrium. Her surgeon is concern for bowel obstruction. She has no history of previous abdominal surgery. She is passing gas and having loose bowel movements. She has been on Keflex. no fevers or chills or sweats. No increased pain to the leg. She does have left leg swelling that has been persistent since her surgery 6 days ago. <Deric Rajan MD - Last Filed: 10/26/23 16:26> Related Data Home medications: Home Medications Medication Instructions Recorded Confirmed carboxymethylcellulose sodium 1 % 1 drp EACH EYE QID 10/07/23 10/20/23 eye liquid gel drops vitamins A,C,U-quym-ebwjvu 2,148 2 tablet PO BID 10/07/23 10/20/23 mcg-113 mg-45 mg-17.4 mg tablet (PreserVision AREDS) <Deric Rajan MD - Last Filed: 10/26/23 16:26> Allergies/adverse reactions: Allergies Allergy/AdvReac Type Severity Reaction Status Date / Time meperidine Allergy Severe ITCHY Verified 10/20/23 08:42 venom-honey bee Allergy Severe Swelling Verified 10/20/23 08:42 adhesive Allergy Mild TAPE= Verified 10/20/23 08:42 BLISTERS <Deric Rajan MD - Last Filed: 10/26/23 16:26> Review of Systems Review of Systems: All systems reviewed & are unremarkable except as noted in HPI and below <Deric Rajan MD - Last Filed: 10/26/23 16:26> Constitutional: Constitutional: Reports no additional constitutional complaints <Deric Rajan MD - Last Filed: 10/26/23 16:26> ENT: Reports system reviewed and no additional complaints, except as documented <Deric Rajan MD - Last Filed: 10/26/23 16:26> Cardiovascular: Cardiovascular: Reports no additional cardiovascular complaints <Deric Rajan MD - Last Filed: 10/26/23 16:26> Respiratory: Respiratory: Reports no additional respiratory complaints <Deric Rajan MD - Last Filed: 10/26/23 16:26> Gastrointestinal: Gastrointestinal: Reports abdominal pain, Reports bloating, Reports diarrhea, Reports nausea and Reports vomiting <Deric Rajan MD - Last Filed: 10/26/23 16:26> Genitourinary: Genitourinary: Reports no additional female genitourinary complaints <Deric Rajan MD - Last Filed: 10/26/23 16:26> Integumentary/Breasts: Skin/Breast: Reports system reviewed and no additional complaints, except as docu <Deric Rajan MD - Last Filed: 10/26/23 16:26> [facility] Past Medical History Medical History: Medical History COVID-19 Depression Essential (primary) hypertension Gastro-esophageal reflux disease without esophagitis Hiatal hernia with gangrene and obstruction Iron deficiency anemia Lumbar degenerative disc disease 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 Other Family history of cardiovascular disease
[2023-10-26 17:13] VITALS: BP 158/88; PULSE 82; RESP 18; O2SAT 100
[2023-10-26 18:32] VITALS: BP 141/75; PULSE 106; RESP 18; O2SAT 99
[2023-10-26] MEDS: METHYLNALTREXONE 12 MG/0.6 ML VIAL SUB-Q (18:36)
[2023-10-26 19:52] VITALS: BP 140/80; PULSE 99; RESP 18; TEMP 36.6; O2SAT 99
[2023-10-26 20:14] LABS: Toxigenic C. Diff NEGATIVE (NEGATIVE)
== END 2023-10-26 19:55 | disposition home or self-care (01) ==
PROVIDERS: Emergency Medicine; Emergency Provider Family Medicine; PCP Nurse Practitioner Family
DX: K56.7 Ileus, unspecified (principal); I10 Essential (primary) hypertension; E78.49 Other hyperlipidemia; J45.909 Unspecified asthma, uncomplicated; D50.9 Iron deficiency anemia, unspecified; K21.9 Gastro-esophageal reflux disease without esophagitis; K44.9 Diaphragmatic hernia without obstruction or gangrene; H35.30 Unspecified macular degeneration; Z96.652 Presence of left artificial knee joint; Z86.16 Personal history of COVID-19; Z87.891 Personal history of nicotine dependence; R93.89 Abnormal findings on diagnostic imaging of other specified body structures; N28.1 Cyst of kidney, acquired; Q63.0 Accessory kidney
CPT/HCPCS: 36415; 74018; 74177; 80053; 83605; 83690; 85025; 87493; 96361; 96372; 96374; 96376; 99284; J2212; J2405; J7030; Q9967

== ENCOUNTER 2023-10-27 01:38 | Inpatient (IN) | payer MEDICARE, SELFPAY ==
[2023-10-27] VITALS (10 sets, daily range): BP systolic 133–159; BP diastolic 75–99; PULSE 99–114; RESP 16–18; TEMP 36.6–36.7; O2SAT 93–98
--- NOTE | ~2023-10-27 | XR_ITS ---
EXAMINATION: XR chest 1V portable DATE: 10/30/2023 05:49 INDICATION: Hiatal hernia. TECHNIQUE: A single frontal view of the chest was obtained. COMPARISON: Chest single view 10/29/2023 FINDINGS: There is mild atelectasis in left lower lung zone. No pleural effusion or pneumothorax. The heart size is normal. There is a large hiatal hernia. IMPRESSION: 1. Mild atelectasis in left lower lung zone. 2. Large hiatal hernia. Reviewed, dictated and finalized at location A.
--- NOTE | ~2023-10-27 | US_ITS ---
EXAMINATION:US venous doppler LE LT INDICATION:Left leg swelling TECHNIQUE: Multiple grayscale, color flow and Doppler images of the left lower extremity deep venous systems were obtained and reviewed. COMPARISON:No prior studies for comparison. FINDINGS: The common femoral, superficial femoral and popliteal veins demonstrate normal respiratory variation, augmentation and compressibility. Color flow is also seen within the posterior tibial, pe roneal, greater saphenous and profunda veins. IMPRESSION: 1: No lower extremity deep venous thrombosis. Reviewed, dictated and finalized at location B.
--- NOTE | ~2023-10-27 | XR_ITS ---
EXAMINATION: XR abdomen/kub 1V DATE: 10/30/2023 05:49 INDICATION: Nausea and vomiting. Adynamic ileus. TECHNIQUE: A supine view of the abdomen on 3 radiographs was obtained. COMPARISON: Abdomen radiograph 10/29/2023 FINDINGS: There are no dilated loops of bowel. There is a small volume of stool in the colon. IMPRESSION: 1. Nonobstructive bowel gas pattern. Reviewed, dictated and finalized at location A.
--- NOTE | ~2023-10-27 | XR_ITS ---
XR abdomen/kub 1V 10/28/2023 08:44 INDICATION: Hiatal hernia. TECHNIQUE: KUB COMPARISON: 10/26/2023 FINDINGS: Bowel gas pattern is normal. There is no evidence of free air, mass, organomegaly, ascites or obstruction. No abnormal calculi are seen. The bones appear intact. NG tube is coiled above the diaphragm presumably in a hiatal hernia. There is severe lumbar spondylosis. IMPRESSION: 1: No acute abdominal abnormality identified. 2: NG tube coiled above the diaphragm, presumably within a hiatal hernia. Reviewed, dictated and finalized at location B.
--- NOTE | ~2023-10-27 | XR_ITS ---
Overview of the abdomen Clinical history: NG tube placement Findings: NG tube has been advanced, with tip and side-port probably within large hiatal hernia. No e vidence for obstruction or free air. No abnormal mass lesion or calcification is seen. Degenerative c hange of the spine noted. Impression: NG tube probably in satisfactory position within large hiatal hernia, as above. Reviewed, dictated and finalized at location . Impression: NG tube probably in satisfactory position within large hiatal hernia, as above.
--- NOTE | ~2023-10-27 | XR_ITS ---
Supine and upright views of the abdomen Clinical history: NG tube placement Findings: Distal tip of NG tube projects lower chest, possibly just within the large hiatal hernia. F urther advancement device, as the side-port is not within the hernia as evidenced by this exam. Bowel gas pattern is nonspecific. No evidence for obstruction or free air. No abnormal mass lesion or calc ification is seen. Degenerative change of the spine noted. Impression: The distal tip of NG tube just be within a large hiatal hernia, however the side port is proximal to the hernia. Further advancement NG tube recommended. Reviewed, dictated and finalized at location M. Impression: The distal tip of NG tube just be within a large hiatal hernia, however the alvin e port is proximal to the hernia. Further advancement NG tube recommended.
--- NOTE | ~2023-10-27 | XR_ITS ---
EXAMINATION: XR UGI water soluble w sbs DATE: 10/29/2023 09:43 INDICATION: Evaluate hiatal hernia and possible obstruction TECHNIQUE: Water-soluble contrast was administered due to the patient's existing nasogastric tube. Co nventional supine abdomen radiographs and fluoroscopic spot radiographs of the esophagus, stomach, an d proximal small bowel were obtained. Additional overhead radiographs were obtained during the transi t through the small bowel. Fluoroscopy exposure time was 0.5 minutes. Total DAP was 83.822 Gycm^2 COMPARISON: None. FINDINGS: [employer] image demonstrates nasogastric tube extending into the intrathoracic portion of the stomach. Co ntrast fills the stomach with relatively rapid passage into the duodenum. There is organoaxial Aidee the intrathoracic portion of the stomach which appears otherwise unremarkable. Transit time from the stomach to proximal colon was approximately 1 hour. There is normal caliber and mucosal fold pattern throughout the small bowel. IMPRESSION: 1. 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 Otherwise unremarkable upper GI and sm all bowel follow-through with no obstruction. Reviewed, dictated and finalized at location A. IMPRESSION: 1. 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 Otherwise unrema rkable upper GI and small bowel follow-through with no obstruction.
--- NOTE | ~2023-10-27 | XR_ITS ---
EXAMINATION: XR abdomen/kub 1V DATE: 10/28/2023 23:15 INDICATION: Nasogastric tube placement. TECHNIQUE: A semiupright view of the abdomen was obtained. COMPARISON: CT abdomen and pelvis 10/26/2023 FINDINGS: The lower abdomen is excluded. There are no dilated loops of bowel. The nasogastric tube ti p is in the large hiatal hernia above the diaphragm. IMPRESSION: 1. Nasogastric tube tip in the large hiatal hernia above the diaphragm. Reviewed, dictated and finalized at location E.
--- NOTE | ~2023-10-27 | XR_ITS ---
Portable chest x-ray Comparison: 08/20/2020 Clinical History: Pain Findings: Lungs are clear, without focal consolidation or pleural effusion. Cardiomediastinal silho uette is stable. Osseous structures are intact. A large hiatal hernia present, similar to prior exam. Impression: Large hiatal hernia. Clear lungs. Reviewed, dictated and finalized at [facility]. Impression: Large hiatal hernia. Clear lungs.
--- NOTE | ~2023-10-27 | US_ITS ---
EXAMINATION: US pelvic complete DATE: 10/27/2023 16:15 INDICATION: Fibroid changes. Comparison:No prior studies for comparison. TECHNIQUE: Multiple transabdominal and endovaginal sonographic images of the pelvis performed. FINDINGS: The uterus measures 9 x 4.8 x 5.5 cm. Endometrium is thickened and heterogeneous measuring 1.4 cm. There is fluid in the endometrium. The ovaries not visualized. There is no free fluid in the pelvis. There are no abnormal masses seen on either side. IMPRESSION: 1. Thickened heterogeneous endometrium measuring 1.4 cm. The differential diagnosis includes endometr ial hyperplasia, polyp and carcinoma. Biopsy is recommended. Reviewed, dictated and finalized at location B. IMPRESSION: 1. Thickened heterogeneous endometrium measuring 1.4 cm. The differential diagn osis includes endometrial hyperplasia, polyp and carcinoma. Biopsy is recommended.
--- NOTE | ~2023-10-27 | XR_ITS ---
EXAMINATION: XR chest 1V portable, XR abdomen/kub 1V DATE: 10/29/2023 06:02 INDICATION: Hiatal hernia and nasogastric tube TECHNIQUE: 1. Frontal view of the chest was obtained. 2. AP view of the abdomen and pelvis was obtained on 3 images. COMPARISON: Chest radiograph dated 10/27/2023 FINDINGS: Nasogastric tube extends along the tortuous esophagus with distal tip coiled projecting over the hear t likely within the intrathoracic portion of a large hiatal hernia. The previously gas distended intr athoracic portion the stomach has decompressed since the prior study. Unchanged mild opacities at the left lower lung zone most likely atelectasis although differential includes pneumonia. No pulmonary edema, pleural effusion or pneumothorax. Heart size is normal. Small to moderate amount of gas scatte red throughout the colon. No dilated loops of gas-filled bowel to suggest obstruction. No free intrap eritoneal gas on the upright chest radiograph. A few phleboliths in the left hemipelvis. Severe lumba r spondylosis. IMPRESSION: 1. Interval decompression of the previously gas distended large sliding-type hiatal hernia post place ment of a nasogastric tube the distal tip which is coiled within the intrathoracic portion of the sto mach. 2. Mild opacities at the left lower lung zone which could represent atelectasis or pneumonia. Reviewed, dictated and finalized at location A. IMPRESSION: 1. Interval decompression of the previously gas distended large sliding-type hi atal hernia post placement of a nasogastric tube the distal tip which is coiled within the intrathoracic portion of the stomach. 2. Mild opacities at the left lower lung zone which could represent atelectasis or pneumonia.
--- NOTE | 2023-10-27 01:40 | ECG_ITS ---
SEE SCANNED COPY FOR CONFIRMED REPORT. MTDD
[2023-10-27 01:53] LABS: Basophils Percent Auto 0.2 % (0.2-1.2); Eosinophils Percent Auto 0.2 % (0-4.4); Hematocrit 36.2 % (37.0-47.0); Hemoglobin 11.5 g/dL (12.0-15.0); Immature Granulocyte Absolute 0.24 K/mm3 (0.00-0.031); Immature Granulocyte Percent A 1.5 % (0-0.5); Lymphocytes Absolute Auto 1.46 K/mm3 (0.9-3.2); Lymphocytes Percent Auto 9.4 % (18.3-44.2); Mean Corpuscular HGB Conc 31.8 g/dl (32-36); Mean Corpuscular Hemoglobin 26.9 pg (26-34); Mean Corpuscular Volume 84.6 fl (80-100); Mean Platelet Volume 8.5 fl (7.4-10.4); Monocytes Absolute Auto 0.7 K/mm3 (0.1-0.6); Monocytes Percent Auto 4.6 % (2.6-8.5); Neutrophils Absolute Auto 13.1 K/mm3 (1.3-6.7); Neutrophils Percent Auto 84.1 % (45.5-73.1); Platelet Count Result 455 k/mm3 (150-375); Red Blood Count 4.28 M/mm3 (4.2-5.4); Red Cell Distribution Width 14.7 % (11.5-14.5); White Blood Count 15.6 K/mm3 (4.5-10.0)
[2023-10-27 02:04] LABS: Prothrombin Time 13.8 Seconds (11.1-14.7)
[2023-10-27 02:05] LABS: Alanine Aminotransferase 26 U/L (6-35); Albumin Level 4.4 g/dL (3.5-5.1); Alkaline Phosphatase 82 U/L (38-126); Anion Gap 10 mmol/L (4-12); Aspartate Amino Transferase 36 U/L (14-36); Bilirubin,Total 0.9 mg/dL (0.2-1.3); Blood Urea Nitrogen 7 mg/dL (7-17); Calcium 9.6 mg/dL (8.4-10.2); Carbon Dioxide 25 mmol/L (22-30); Chloride 104 mmol/L (98-107); Estimated Glomerular Filt Rate > 60; Glucose 151 mg/dL (65-110); Lipase 99 U/L (23-300); Partial Thromboplastin Time 44.9 Seconds (22.3-36.8); Potassium 3.4 mmol/L (3.4-5.0); Sodium 139 mmol/L (137-145)
[2023-10-27 02:16] LABS: Troponin I < 0.012 ng/mL (0.000-0.034)
[2023-10-27] MEDS: HYDROmorphone HCL INJ (*CRX) 1 MG/ML SYR 0.5 MG IV PUSH (03:25)
[2023-10-27] MEDS: PANTOPRAZOLE SODIUM IV 40 MG VIAL IV PUSH (03:25)
[2023-10-27] MEDS: SODIUM CHLORIDE 0.9% IV 2,000 ML 999 ML IV CONT (03:25)
--- NOTE | 2023-10-27 03:30 | ED.GENADULT ---
HPI - General Adult General Chief complaint: Chest Pain Stated complaint: abd and chest pain Time Seen by Provider: 10/27/23 01:56 History of Present Illness HPI narrative: ? Patient bouncing back to the ED with persistent nausea and vomiting. She was seen earlier today. See HPI below. After patient went home she was not able tolerate liquid or soft foods. She is also having persistent epigastric pain/fullness. HPI from earlier visit: Patient is a 78-year-old female who presents ER with nausea vomiting.? Patient recently underwent left total knee replacement.? She was discharged home and has been having vomiting and fullness in her epigastrium.? Her surgeon is concern for bowel obstruction.? She has no history of previous abdominal surgery.? She is passing gas and having loose bowel movements.? She has been on Keflex. ? no fevers or chills or sweats.? No increased pain to the leg.? She does have left leg swelling that has been persistent since her surgery 6 days ago. Related Data Home Medications Medication Instructions Recorded Confirmed carboxymethylcellulose sodium 1 % 1 drp EACH EYE QID 10/07/23 10/20/23 eye liquid gel drops vitamins A,C,F-mhdu-oycpdw 2,148 2 tablet PO BID 10/07/23 10/20/23 mcg-113 mg-45 mg-17.4 mg tablet (PreserVision AREDS) Allergies Allergy/AdvReac Type Severity Reaction Status Date / Time meperidine Allergy Severe ITCHY Verified 10/20/23 08:42 venom-honey bee Allergy Severe Swelling Verified 10/20/23 08:42 adhesive Allergy Mild TAPE= Verified 10/20/23 08:42 BLISTERS PMFSH Past Medical History Medical History COVID-19 Depression Essential (primary) hypertension Gastro-esophageal reflux disease without esophagitis Hiatal hernia with gangrene and obstruction Iron deficiency anemia Lumbar degenerative disc disease 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 Other Family history of cardiovascular disease Social History Social History Smoking packs per day: 1 Smoking cigarettes per day: 20.0 Years smoked: 12 Smoking pack-years: 12.00 Smoking status: Former smoker Second hand tobacco smoke exposure: No Additional smoking assessment comments: DENIES ANY FORM OF TOBACCO USE Alcohol intake: never Substance use: never Substance use type: does not use Do You Feel Safe in your Home?: Yes Lack of Transportation: No Lack of Food: Never True Current Housing: I Have Housing Concerned About Future Housing: No Difficulty Paying Gas/Electric Bills: No Difficulty Paying for Meds: No Currently Unemployed: No Education: High School Diploma/GED Difficulty w/ Childcare or Family Care: No Living arrangements: with family Occupation/Education: retired Spiritual care concerns: No Exam Narrative: APPEARANCE: patient appears uncomfortable Head: atraumatic. EYES: EOMI, NOSE: Atraumatic NECK: Trachea midline RESPIRATORY: No increased rate of breathing clear to auscultation CARDIOVASCULAR: tachycardic ABDOMINAL: epigastric tenderness and fullness. MUSCULOSKELETAl: No obvious deformities NEURO: Alert. Moving 4/4 extremities SKIN:: Warm, dry. Normal color PSYCHIATRIC: Normal affect Course Vital Signs Vital signs: Vital Signs Temperature 98.1 F 10/27/23 01:50 Pulse Rate 114 H 10/27/23 01:50 Respiratory Rate 17 10/27/23 01:50 Blood Pressure 133/99 H 10/27/23 01:50 Pulse Oxime
[2023-10-27] MEDS: LIDOCAINE HCL 2% LOCAL INJ 20 ML VIAL 10 ML INFILTRATE (04:17)
[2023-10-27] MEDS: ONDANSETRON INJ 4 MG/2 ML VIAL IV PUSH ×4 (04:18→21:36)
--- NOTE | 2023-10-27 06:38 | ADMGEN ---
This patient, Maddie Rodriguez, was admitted to [facility] Surg Room 316-02. Patient/family oriented to hospital policies and general routines including ID bracelet, bed and alarms, visiting hours, pain management, procedures, bathroom and other care routines, personal items, smoking policy, room service/diet, and visiting hours. Information on how to activate the Rapid Response Team has been discussed. Patient/Family are encouraged to report perceived risks to care and to ask questions if they do not understand what they are told or what they should do.
[2023-10-27 06:55] LABS: Troponin I < 0.012 ng/mL (0.000-0.034)
[2023-10-27] MEDS: LACTATED RINGERS 1,000 ML 125 ML IV CONT (07:07)
[2023-10-27] MEDS: MORPHINE SULFATE (*CRX) 2 MG/ML INJ IV PUSH ×3 (09:12→21:29)
[2023-10-27] MEDS: POTASSIUM CHLORIDE INJ 20 MEQ in LACTATED RINGERS 1,000 ML 100 MEQ IV CONT ×2 (09:14→21:30)
--- NOTE | 2023-10-27 09:56 | PM.IMHP ---
H&P: HPI History of Present Illness Date/Time: 10/27/23 09:56 Chief Complaint: Nausea vomiting abdominal pain and diarrhea Narrative: A pleasant 78-year-old female with past medical history iron deficiency anemia, GERD, hypertension, degenerative joint disease, depression presenting with nausea vomiting abdominal pain and diarrhea. She had a left TKA on 10/19 which was uncomplicated. She was sent home on Keflex for extended antibiotic prophylaxis and Eliquis 2.5 mg p.o. b.i.d. for DVT prophylaxis and Celebrex for pain prophylaxis. She returns shortly after to [place] [facility] with nausea vomiting and was sent home she bounced back with refractory symptoms. C diff PCR in [place] ER negative, white count 15.6, chest x-ray unremarkable aside, CT abdomen pelvis with contrast demonstrating large sliding hiatal hernia with air-fluid level in fluid levels in the duodenum and mild dilatation of duodenum and proximal jejunum without apparent transition point indicating possible mild adynamic ileus and no overt bowel obstruction identified. Dr. Garces CT surgery at [facility] check from emergency department and he advised conservative treatment with NG tube and bowel rest. NG tube placed in ER. She receive aspirin 324 mg p.o. x1 along with Dilaudid Protonix 2 L normal saline bolus and Zofran. Orthopedic and general surgery consulted. Review of Systems Review of Systems: Evaluation in room 316 patient reports uncomfortable feeling in abdomen and no bowel movement since admission. Brown slimy and loose prior to admission. 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 Other Family history of cardiovascular disease Social History Social History Smoking packs per day: 1 Smoking cigarettes per day: 20.0 Years smoked: 12 Smoking pack-years: 12.00 Smoking status: Former smoker Tobacco type: cigarettes Second hand tobacco smoke exposure: No Smoking end date: 10/05/87 Additional smoking assessment comments: DENIES ANY FORM OF TOBACCO USE Alcohol intake: never Substance use: never Substance use type: does not use Do You Feel Safe in your Home?: Yes Lack of Transportation: No Lack of Food: Never True Current Housing: I Have Housing Concerned About Future Housing: No Difficulty Paying Gas/Electric Bills: No Difficulty Paying for Meds: No Currently Unemployed: No Education: Trade/Vocational Certificate Difficulty w/ Childcare or Family Care: No Living arrangements: with family Occupation/Education: retired Spiritual care concerns: No Meds Home Medications and Allergies Home Medications Medication Instructions Recorded Confirmed Type furosemide 20 mg tablet (Lasix) 10 mg PO QAM PRN edema #30 tabs 02/22/23 10/20/23 Rx rosuvastatin 10 mg tablet 10 mg PO DAILY #90 tabs 05/16/23 10/20/23 Rx pantoprazole 40 mg tablet,delayed See Rx Instructions .Route 06/28/23 10/20/23 Rx release .COMPLEX #90 tabs albuterol sulfate 90 mcg/actuation 2 inh inhalation Q4-6H PRN 08/04/23 10/20/23 Rx a
[2023-10-27 11:24] LABS: Glucose Point of Care 97 mg/dl (65-105)
--- NOTE | 2023-10-27 11:48 | PM.CNGS ---
Assessment and Plan Assessment and plan (1) Hiatal hernia without gangrene or obstruction: Code(s): K44.9 - Diaphragmatic hernia without obstruction or gangrene Status: Chronic Assessment and Plan: Patient with a chronic large hiatal hernia, who returns one week postop following a total knee arthroplasty with intractable nausea and vomiting. On the CT scan, the large hiatal hernia has air-fluid levels and also findings suggestive of a possible mild adynamic ileus. She had an NG tube placed, which appears to be in position in her hiatal hernia. We would recommend to continue with conservative measures at this time with NG tube decompression, bowel rest, and IV fluids. Hopefully this will improve with NG decompression, but if her symptoms persist, then we could consider surgical repair of her hiatal hernia. Continue to monitor with serial abdominal exams and imaging. (2) Intractable nausea and vomiting: Code(s): R11.2 - Nausea with vomiting, unspecified Status: Acute (3) Ileus: Code(s): K56.7 - Ileus, unspecified Status: Acute (4) Abnormal CT of the abdomen: Code(s): R93.5 - Abnormal findings on diagnostic imaging of other abdominal regions, including retroperitoneum Status: Acute Assessment and Plan: CT scan also showed changes of the endometrial area suggesting possible endometrial carcinoma. Radiologist recommended a pelvic ultrasound, which has also been ordered today. Patient will need to be evaluated by Gynecology. (5) Presence of left artificial knee joint: Code(s): Z96.652 - Presence of left artificial knee joint Status: Acute Assessment and Plan: S/p left TKA on 10/20/23 and on Eliquis 2.5 mg BID for DVT prophylaxis. Lower extremity doppler ordered by hospitalist to rule out DVT. Ortho has been consulted. (6) Gastro-esophageal reflux disease without esophagitis: Code(s): K21.9 - Gastro-esophageal reflux disease without esophagitis Status: Acute (7) Essential (primary) hypertension: Code(s): I10 - Essential (primary) hypertension Status: Acute Plan I have discussed the patient's case and plan of care with Dr. Velazquez. Thank you for allowing us to see the patient in consultation and we will continue to follow along with you. History of Present Illness Consult details Consult date: 10/27/23 Reason for consult: other (Intractable nausea and vomiting) Requesting physician: Kaden Kendrick MD Narrative: This is a 78-year-old woman with a history of iron deficiency anemia, GERD, hiatal hernia, hypertension, degenerative joint disease, depression, who we have been asked to see in surgical consultation for intractable nausea and vomiting. She had a left TKA on 10/20/2023 and was discharged home postop day 1 with Eliquis 2.5 mg p.o. b.i.d. for DVT prophylaxis. Per the patient she went home and her recovery was uneventful the first few days. She reports being sent home with MiraLax that she was taking daily postoperatively. She began having diarrhea over the weekend and into Tuesday, therefore she stopped taking the MiraLax. She then developed nausea and vomiting about 3-4 days ago. She was unable to keep anything down. She also reports bloating and abdominal distension. She reports her diarrhea continued up until yesterday. Due to her persistent vomiting, she went to the ER yesterday for evaluation. She had a bowel movement in the ER and was discharged home. She tried eating some soup later in the day and again vomited. She return to the ER later the same day as she could not even keep down water. Workup in the ED, showed CT evidence of a large sliding hiatal hernia with air-fluid level and fluid levels in the duodenum, mild dilatation of the duodenum and proximal jejunum without apparent transition point, consider mild adynamic ileus. No bowel obstruction or intraperitoneal free air is otherwise noted. Incidentally noted was prominent mixed hyp
[2023-10-27 11:56] LABS: Appearance Urine Cloudy (Clear); Bacteria Urine None Seen /hpf; Bilirubin Urine Negative (Negative); Blood Urine Negative (Negative); Color Urine Yellow (Yellow); Glucose Urine UA Negative (Negative); Ketones Urine 2+ mg/dL (Negative); Leukocyte Esterase Ur Negative LEU/UL (Negative); Nitrate Urine Negative (Negative); Non Pathogenic Casts 0-2; Protein Urine Negative (Negative); RBC Urine 0-2 /hpf (0-2); Specific Grav Ur 1.015 (1.001-1.035); Squamous Epithelial Cell Urine None Seen /hpf (Few); Urobilinogen Urine 0.2 mg/dL (<2.0); WBC Urine 0-5 /hpf (0-3); pH Urine 5.5 (5.0-9.0)
[2023-10-27 11:58] LABS: Add Urine Microscopic? YES
--- NOTE | 2023-10-27 12:33 | PM.CNOR ---
Assessment and Plan Assessment and plan (1) Presence of left artificial knee joint: Code(s): Z96.652 - Presence of left artificial knee joint Status: Acute Assessment and Plan: Patient is a 78-year-old female who had left knee replacement done 7 days ago. She went home the day after surgery in felt she was doing very well. She did have some diarrhea that she attributed to the MiraLax and she stopped that. She was also 1. Colace 2 tablets twice daily. Then after physical therapy 2 days ago she developed severe nausea and abdominal distension. Yesterday she called to report that she was throwing up and she was advised to go to the emergency room which she did. She had a CT scan which showed a large hiatal hernia and she has had problems with this for the last 1 1/2 years no prior surgery for this problem but has been symptomatic with reflux. There was some suggestion of dilation of small bowel loops consistent with ileus. A nasogastric tube was placed. Her knee incision looks perfect. She has diffuse mild to moderate swelling and ecchymosis in the lower leg which is fairly typical. We will Emphasize aggressive elevation while she is here in the hospital. We will also apply sequential compressive devices and she will be in bed a lot and this can reduce swelling as well. Discharged on Eliquis 2.5 mg twice daily and that has been switched to Lovenox 30 mg daily which is very appropriate for DVT prophylaxis after knee replacement and would be faster to reverse if she requires abdominal surgery. She has intact neurologic status in her left foot. She is weight-bearing as tolerated. She is very comfortable. Will ask physical therapy to work with her as well while she is here. This is a no-charge postoperative follow-up visit. 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 Other Family history of cardiovascular disease Social History Social History Smoking packs per day: 1 Smoking cigarettes per day: 20.0 Years smoked: 12 Smoking pack-years: 12.00 Smoking status: Former smoker Tobacco type: cigarettes Second hand tobacco smoke exposure: No Smoking end date: 10/05/87 Additional smoking assessment comments: DENIES ANY FORM OF TOBACCO USE Alcohol intake: never Substance use: never Substance use type: does not use Do You Feel Safe in your Home?: Yes Lack of Transportation: No Lack of Food: Never True Current Housing: I Have Housing Concerned About Future Housing: No Difficulty Paying Gas/Electric Bills: No Difficulty Paying for Meds: No Currently Unemployed: No Education: Trade/Vocational Certificate Difficulty w/ Childcare or Family Care: No Living arrangements: with family Occupation/Education: retired Spiritual care concerns: No Meds Home Medications and Allergies Home Medications Medication Instructions Recorded Confirmed Type furosemide 20 mg tablet (Lasix) 10 mg PO QAM PRN edema #30 tabs 02/22/23 10/20/23 Rx rosuvastatin 10 mg tablet 10 mg PO DAILY #90 tabs /
--- NOTE | 2023-10-27 18:50 | PC.NURSE ---
Minimal output from NG tube. When pt had been in ED, the pt stated there was about 300 (gestured with fingers to how much was in the canister) of liquid, dark green/brown. When I received pt, NG hooked up and not much returning. Flushed NG, checked connections, new vacuum attachment, various methods tried to encourage return. Payal aware not much returning.
[2023-10-27] MEDS: ENOXAPARIN 30 MG/0.3 ML SYRINGE SUB-Q (21:29)
[2023-10-28] VITALS (9 sets, daily range): BP systolic 138–155; BP diastolic 76–82; PULSE 92–108; RESP 12–16; TEMP 36.4–36.8; O2SAT 95–98
--- NOTE | 2023-10-28 05:00 | ECG_ITS ---
SEE SCANNED COPY FOR CONFIRMED REPORT. MTDD
[2023-10-28 05:59] LABS: Basophils Absolute Auto 0.1 K/mm3 (0.0-0.1); Basophils Percent Auto 0.4 % (0.2-1.2); Eosinophils Absolute Auto 0.3 K/mm3 (0-0.3); Eosinophils Percent Auto 2.4 % (0-4.4); Hematocrit 32.5 % (37.0-47.0); Immature Granulocyte Absolute 0.15 K/mm3 (0.00-0.031); Immature Granulocyte Percent A 1.3 % (0-0.5); Lymphocytes Absolute Auto 2.19 K/mm3 (0.9-3.2); Mean Corpuscular HGB Conc 30.8 g/dl (32-36); Mean Corpuscular Hemoglobin 26.6 pg (26-34); Mean Corpuscular Volume 86.4 fl (80-100); Mean Platelet Volume 8.3 fl (7.4-10.4); Neutrophils Absolute Auto 7.8 K/mm3 (1.3-6.7); Neutrophils Percent Auto 67.9 % (45.5-73.1); Platelet Count Result 440 k/mm3 (150-375); Red Blood Count 3.76 M/mm3 (4.2-5.4); Red Cell Distribution Width 14.9 % (11.5-14.5); White Blood Count 11.5 K/mm3 (4.5-10.0)
[2023-10-28 06:16] LABS: Anion Gap 5 mmol/L (4-12); Blood Urea Nitrogen 5 mg/dL (7-17); Calcium 9.1 mg/dL (8.4-10.2); Carbon Dioxide 30 mmol/L (22-30); Chloride 105 mmol/L (98-107); Estimated Glomerular Filt Rate > 60; Glucose 102 mg/dL (65-110); Magnesium 2.2 mg/dL (1.6-2.3); Potassium 3.3 mmol/L (3.4-5.0); Sodium 140 mmol/L (137-145)
[2023-10-28] MEDS: ENOXAPARIN 30 MG/0.3 ML SYRINGE SUB-Q ×2 (09:30→20:13)
[2023-10-28] MEDS: PANTOPRAZOLE SODIUM IV 40 MG VIAL IV PUSH (09:30)
[2023-10-28] MEDS: ONDANSETRON INJ 4 MG/2 ML VIAL IV PUSH ×2 (09:33→15:10)
--- NOTE | 2023-10-28 10:57 | PM.PNGS ---
Progress Note: A&P Assessment and Plan (1) Intractable nausea and vomiting: Code(s): R11.2 - Nausea with vomiting, unspecified Status: Acute Assessment and Plan: Improved from yesterday after large volume of NG output overnight. Output shows dark or old blood, no fresh blood. Her H&H is appropriate considering she received over 3000 cc of IV fluid since admitted. She feels much better today. Hopefully this is an ileus and will resolve. Will order water-soluble upper GI small-bowel follow-through tomorrow to assess if NG tube can be removed. (2) Hiatal hernia without gangrene or obstruction: Code(s): K44.9 - Diaphragmatic hernia without obstruction or gangrene Status: Chronic Assessment and Plan: Imaging did not show evidence of an incarcerated hiatal hernia so hopefully her nausea and vomiting is just due to ileus following her surgery and will resolve with present treatment. Plan is to get water-soluble upper GI small-bowel follow-through tomorrow to evaluate contrast passage and potential for nasogastric tube removal. (3) Abnormal finding present on diagnostic imaging of uterus: Code(s): R93.89 - Abnormal findings on diagnostic imaging of other specified body structures Status: Acute Assessment and Plan: Ultrasound of pelvis also suspicious for abnormal uterine endometrium possibly endometrial cancer. Recommend gynecologic consultation. Subjective Subjective Date/Time Seen: 10/28/23 10:57 Patient reports: no new complaints, feels better, no flatus, no bowel movement, afebrile and other (Desperately wants some ice chips.) Interval history: Patient reports that she feels very much better than she did yesterday. She does not feel nauseated. She denies having any abdominal pain. She reports that the large amount of NG tube output led to her feeling so much better today. Review of Systems Review of Systems: All systems reviewed & are unremarkable except as noted in HPI and below (HPI) Exam Const: General: cooperative, comfortable, no acute distress, alert and awake Nutritional Appearance: average body habitus Orientation/consciousness: patient oriented x3 GI: Inspection: non-distended, scar and other (NG output shows old blood, no fresh or bright red blood.) GI Palp: Yes Soft to palpation, Yes Tenderness to palpation present (GI), No Guarding due to palpation present (GI), No Hernia present, No Palpable mass present and No Rebound tenderness present Auscultation: normal bowel sounds Neuro: General: patient oriented x3 and no focal motor deficits Extrem: General: no calf tenderness and no edema Psych: Affect: normal affect Insight: Good insight present (Psych) Judgement: Good judgement present (Psych) Objective Data Vital Signs Vital Signs: Vital Signs - 24 hr 10/27/23 12:00 10/27/23 14:00 10/27/23 15:05 Temperature 36.6 C Pulse Rate 100 99 Respiratory Rate 18 Blood Pressure 148/75 H Pulse Oximetry 97 Oxygen Delivery Room Air 10/27/23 16:00 10/27/23 20:55 10/27/23 20:00 Temperature 36.7 C Pulse Rate 101 H 99 Respiratory Rate 16 Blood Pressure 159/81 H Pulse Oximetry 96 96 Oxygen Delivery Room Air 10/27/23 20:00 10/28/23 00:00 10/28/23 04:00 Temperature Pulse Rate 102 H 95 96 Respiratory Rate Blood Pressure Pulse Oximetry Oxygen Delivery 10/28/23 05:15 Temperature 36.5 C Pulse Rate 99 Respiratory Rate 16 Blood Pressure 155/82 H Pulse Oximetry 98 Oxygen Delivery Intake/Output Intake/Output: Intake & Output 10/25/23 10/26/23 10/27/23 10/28/23 23:59 23:59 23:59 23:59 Intake Total 3010 Output Total 400 650 Balance 2610 -650 Meds/Results Medications: Active Medications Generic Name Dose Route Start Last Admin Trade Name Freq PRN Reason Stop Dose Admin Acetaminophen 650 mg 10/27/23 14:04 Acetaminophen 650 Mg Suppository RECTAL Q6H PRN Mild Pain (1-3)
--- NOTE | 2023-10-28 12:16 | PM.PNORT ---
Progress Note: A&P Assessment and Plan (1) Status post total left knee replacement: Code(s): Z96.652 - Presence of left artificial knee joint Status: Acute Assessment and Plan: Patient is hospital day 3. Severe gastric distension necessitating placement of NG tube due to possible ileus versus obstruction. Evaluation is ongoing. She still feels that the little bit distended of though feels much better than before the NG was placed. She does note occasional left lower quadrant pain and wonders whether there is a problem there. Her knee incision is dry. Her diffuse swelling and edema in the leg is a little bit less than yesterday and is mild to moderate today. She has a fair amount of ecchymosis leg which is typical after knee replacement and being on a strong blood thinner after surgery. She is on Lovenox 30 mg subQ Q 24 hours currently. Her pain is mild occasionally moderate. She does have morphine 2 mg IV as needed ordered and I discussed with her that we have a Tylenol suppository that is ordered for her if she feels she would like to try that. She walked in the halls today and did well. She is now in bed the left leg elevated on [address] Hemoglobin 10.0 today. It was 11.5 yesterday.It the day after surgery on 10/21/2023 hemoglobin was 9.6. I would agree that the drop in hemoglobin between yesterday and today is likely explainable by correction of dehydration caused by nausea and vomiting before admission. She tested positive for oxacillin sensitive Staph aureus on nasal swab screening preoperatively and for this reason she was given Keflex for extended oral antibiotics surgery to reduce her risk of postoperative infection in her knee replacement. She completed 7 days of antibiotics prior to admission which I think is sufficient. Physical therapy is working with her. Subjective Subjective Date/Time Seen: 10/28/23 12:16 Objective Data Vital Signs Vital Signs: Vital Signs - 24 hr 10/27/23 14:00 10/27/23 15:05 10/27/23 16:00 Temperature 36.6 C Pulse Rate 99 101 H Respiratory Rate 18 Blood Pressure 148/75 H Pulse Oximetry 97 Oxygen Delivery Room Air 10/27/23 20:55 10/27/23 20:00 10/27/23 20:00 Temperature 36.7 C Pulse Rate 99 102 H Respiratory Rate 16 Blood Pressure 159/81 H Pulse Oximetry 96 96 Oxygen Delivery Room Air 10/28/23 00:00 10/28/23 04:00 10/28/23 05:15 Temperature 36.5 C Pulse Rate 95 96 99 Respiratory Rate 16 Blood Pressure 155/82 H Pulse Oximetry 98 Oxygen Delivery Intake/Output Intake/Output: Intake & Output 10/25/23 10/26/23 10/27/23 10/28/23 23:59 23:59 23:59 23:59 Intake Total 3010 Output Total 400 650 Balance 2610 -650 Meds/Results Medications: Active Medications Generic Name Dose Route Start Last Admin Trade Name Freq PRN Reason Stop Dose Admin Acetaminophen 650 mg 10/27/23 14:04 Acetaminophen 650 Mg Suppository RECTAL Q6H PRN Mild Pain (1-3) Enoxaparin Sodium 30 mg 10/27/23 21:00 10/28/23 09:30 Enoxaparin 30 Mg/0.3 Ml Syringe SUB-Q 30 mg Q12HR VIOLETA Administration Potassium Chloride/Dextrose/Sod Cl 1,000 mls @ 100 mls/hr 10/28/23 11:00 Kcl 40 Meq/D5ns IV CONT .Q10H VIOLETA Morphine Sulfate 2 mg 10/27/23 08:20 10/27/23 21:29 Morphine Sulfate (*Crx) 2 Mg/Ml Inj IV PUSH 2 mg Q2HR PRN Administration Pain Rated 7-10 Ondansetron HCl 4 mg 10/27/23 09:10 10/28/23 09:33 Ondansetron Inj 4 Mg/2 Ml Vial IV PUSH 4 mg Q4H PRN Administration Nausea And Vomiting Pantoprazole Sodium 40 mg 10/28/23 09:00 10/28/23 09:30 Pantoprazole Sodium Iv 40 Mg Vial IV PUSH 40 mg QAM VIOLETA Administration Radiology Results: ITS Impressions Chest X-Ray 10/27/23 05:31 Impression: Large hiatal hernia. Clear lungs. Pelvis Ultrasound 10/27/23 16:16 IMPRESSION: 1. Thickened heterogeneous endometrium measuring 1
--- NOTE | 2023-10-28 14:39 | PM.IMPN ---
Progress Note: A&P Assessment and Plan (1) Status post total left knee replacement: Code(s): Z96.652 - Presence of left artificial knee joint Status: Acute (2) Abnormal finding present on diagnostic imaging of uterus: Code(s): R93.89 - Abnormal findings on diagnostic imaging of other specified body structures Status: Acute (3) Abnormal CT of the abdomen: Code(s): R93.5 - Abnormal findings on diagnostic imaging of other abdominal regions, including retroperitoneum Status: Acute (4) Presence of left artificial knee joint: Code(s): Z96.652 - Presence of left artificial knee joint Status: Acute (5) Hiatal hernia without gangrene or obstruction: Code(s): K44.9 - Diaphragmatic hernia without obstruction or gangrene Status: Chronic (6) Intractable nausea and vomiting: Code(s): R11.2 - Nausea with vomiting, unspecified Status: Acute (7) Leukocytosis: Code(s): D72.829 - Elevated white blood cell count, unspecified Status: Acute Plan A pleasant 78-year-old female with past medical history iron deficiency anemia, GERD, hypertension, degenerative joint disease, depression presenting with nausea vomiting abdominal pain and diarrhea.? She had a left TKA on 10/19 which was uncomplicated.? She was sent home on Keflex for extended antibiotic prophylaxis and Eliquis 2.5 mg p.o. b.i.d. for DVT prophylaxis and Celebrex for pain prophylaxis.? She returns shortly after to [place] [facility] with nausea vomiting and was sent home she bounced back with refractory symptoms.? C diff PCR in [place] [facility] negative, white count 15.6, chest x-ray unremarkable aside, CT abdomen pelvis with contrast demonstrating large sliding hiatal hernia with air-fluid level in fluid levels in the duodenum and mild dilatation of duodenum and proximal jejunum without apparent transition point indicating possible mild adynamic ileus and no overt bowel obstruction identified. Dr. Garces CT surgery at [facility] check from emergency department and he advised conservative treatment with NG tube and bowel rest.? NG tube placed in ER.? She receive aspirin 324 mg p.o. x1 along with Dilaudid Protonix 2 L normal saline bolus and Zofran.? Orthopedic and general surgery consulted. Nausea vomiting abdominal pain diarrhea -lipase within normal limits.? Differential include small-bowel obstruction, ileus, and severe sliding hiatal hernia -C diff negative. -general surgery managing. Repeat imaging and water soluble small bowel series the morning to hopefully remove the NG tube. -potassium being replaced via D5 normal saline with potassium infusion -continue morphine 2 mg IV p.r.n. continue Zofran p.r.n. and Protonix 40 mg IV q.a.m. -continue telemetry -troponin negative x3.? EKG without acute ischemia.? QTC 414. Check QTC as needed. Recent left TKA -orthopedic surgery following. She recommendations such as elevation of the knee. They do not think she needs antibiotics and I agree with this. -she is currently on Lovenox 30 mg b.i.d.. Restart apixaban when she is eating again. -significant swelling of the left lower extremity postop is negative for Ken[place] sign and the left lower extremity Dopplers negative for DVT. Continue SCDs and elevation. Continue therapy. Leukocytosis -Chest x-ray not indicative of aspiration pneumonia. Urinalysis not impressive. Blood cultures pending. -likely reactive. Continue to monitor. Procalcitonin 0. Fibroid changes identified on CT scan -patient reports in her 30s she was told this but is unclear on what the follow-up was.? A pelvic ultrasound demonstrated thickened heterogeneous endometrium measuring 1.4 cm. Gynecology consult pending. The patient denies any vaginal bleeding. FEN:? NPO with NG tube with ice chips.? Potassium with D5 normal saline infusion GI prophylaxis:? Protonix 40 mg IV q.a.m. DVT prophylaxis:? SCDs plus Lovenox 30 mg subQ b.i.d.. Lines:? Peripheral IV, NG tube placed on
[2023-10-28] MEDS: MORPHINE SULFATE (*CRX) 2 MG/ML INJ IV PUSH ×2 (15:10→20:13)
[2023-10-28] MEDS: KCL 40 MEQ/D5/0.9% SOD CHL 1,000 ML 100 ML IV CONT (15:10)
[2023-10-28] MEDS: LORazepam INJ (*CRX) 2 MG/ML VIAL 1 MG IV PUSH (22:35)
--- NOTE | 2023-10-28 23:38 | PC.NURSE ---
Addendum entered by Nimisha Batista RN 10/29/23 06:16: Instructed to clamp NG unless pt becomes nauseous again, due to continuing to be coiled at hiatal hernia site. Original Note: Notified provider of x-ray results regarding NG tube placement, per another x-ray this shift.
[2023-10-29] VITALS (8 sets, daily range): BP systolic 129–141; BP diastolic 71–74; PULSE 63–106; RESP 12–16; TEMP 36.5–36.9; O2SAT 93–96
[2023-10-29] MEDS: MORPHINE SULFATE (*CRX) 2 MG/ML INJ IV PUSH ×6 (00:04→21:24)
[2023-10-29] MEDS: KCL 40 MEQ/D5/0.9% SOD CHL 1,000 ML 100 ML IV CONT ×4 (01:46→22:51)
[2023-10-29] MEDS: ONDANSETRON INJ 4 MG/2 ML VIAL IV PUSH ×3 (03:00→23:14)
[2023-10-29 06:26] LABS: Hemoglobin 9.5 g/dL (12.0-15.0); Mean Corpuscular HGB Conc 30.6 g/dl (32-36); Mean Corpuscular Hemoglobin 26.8 pg (26-34); Mean Corpuscular Volume 87.3 fl (80-100); Mean Platelet Volume 8.2 fl (7.4-10.4); Platelet Count Result 412 k/mm3 (150-375); Red Blood Count 3.55 M/mm3 (4.2-5.4); White Blood Count 9.9 K/mm3 (4.5-10.0)
[2023-10-29 06:38] LABS: Anion Gap 0 mmol/L (4-12); Blood Urea Nitrogen 8 mg/dL (7-17); Carbon Dioxide 33 mmol/L (22-30); Chloride 105 mmol/L (98-107); Estimated Glomerular Filt Rate > 60; Potassium 3.7 mmol/L (3.4-5.0); Sodium 138 mmol/L (137-145)
[2023-10-29 06:39] LABS: Calcium 8.6 mg/dL (8.4-10.2); Glucose 109 mg/dL (65-110); Magnesium 2.1 mg/dL (1.6-2.3)
[2023-10-29] MEDS: PANTOPRAZOLE SODIUM IV 40 MG VIAL IV PUSH (09:15)
[2023-10-29] MEDS: ENOXAPARIN 30 MG/0.3 ML SYRINGE SUB-Q ×2 (09:16→21:22)
--- NOTE | 2023-10-29 10:01 | PCPTNOTE ---
Attempted to see patient 2x this morning, however patient out of room for testing on first attempt and then declined PT on second attempt stating she is having L knee pain and felt dizzy when returning to bed from commode. PT will continue to follow per plan of care.
--- NOTE | 2023-10-29 11:13 | WPDCN ---
HPI Data of Consult Date/Time: 10/29/23 11:13 78-year-old female admitted with issues status post left knee replacement. General surgery and orthopedics well as hospitalist only case and managing these issues. Incidentally ultrasound shows endometrial hypertrophy of 14mm. She denies any vaginal bleeding and has not had for years, no other gynecologic issues or concerns. Discussed at length with patient 8-10% risk of malignancy in this clinical setting, and need for tissue sample at some point. If she undergoes surgical intervention for her bowel issues this can be performed concurrently, either here or at [facility] (patient states there is discussion of potential transfer). If issues resolve without surgical intervention she will follow on an outpatient basis and we can schedule hysteroscopy D&C in the future. Patient states good understanding of all the above and the need for tissue sampling at some point to delineate whether this is a benign or malignant process. Questions are answered and patient states that she will follow-up if does not have tissue sampling performed with other surgical intervention. 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 Other Family history of cardiovascular disease Social History Social History Smoking packs per day: 1 Smoking cigarettes per day: 20.0 Years smoked: 12 Smoking pack-years: 12.00 Smoking status: Former smoker Tobacco type: cigarettes Second hand tobacco smoke exposure: No Smoking end date: 10/05/87 Additional smoking assessment comments: DENIES ANY FORM OF TOBACCO USE Alcohol intake: never Substance use: never Substance use type: does not use Do You Feel Safe in your Home?: Yes Lack of Transportation: No Lack of Food: Never True Current Housing: I Have Housing Concerned About Future Housing: No Difficulty Paying Gas/Electric Bills: No Difficulty Paying for Meds: No Currently Unemployed: No Education: Trade/Vocational Certificate Difficulty w/ Childcare or Family Care: No Living arrangements: with family Occupation/Education: retired Spiritual care concerns: No Meds Home Medications and Allergies Home Medications Medication Instructions Recorded Confirmed Type albuterol sulfate 90 mcg/actuation 2 inh inhalation Q4-6H PRN 08/04/23 10/27/23 Rx aerosol inhaler (ProAir HFA) shortness of breath or wheezing #18 grams buspirone 7.5 mg tablet 7.5 mg PO BID #180 tabs 08/15/23 10/27/23 Rx carvedilol 12.5 mg tablet 12.5 mg PO TID #90 tabs 08/23/23 10/27/23 Rx duloxetine 60 mg capsule,delayed 60 mg PO BID #180 caps 09/05/23 10/27/23 Rx release cholecalciferol (vitamin D3) 25 25 mcg PO DAILY #90 caps 09/30/23 10/27/23 Rx mcg (1,000 unit) capsule acetaminophen 500 mg tablet 1,000 mg PO Q6H #120 tabs 10/21/23 10/27/23 Rx apixaban 2.5 mg tablet (Eliquis) 2.5 mg PO Q12HR #27 tabs 10/21/23 10/27/23 Rx cephalexin 500 mg capsule 500 mg PO Q6HR #56 caps 10/21/23 10/27/23
--- NOTE | 2023-10-29 13:16 | PM.PNGS ---
Progress Note: A&P Assessment and Plan (1) Intractable nausea and vomiting: Code(s): R11.2 - Nausea with vomiting, unspecified Status: Acute Assessment and Plan: UGI shows no obstruction today. Patient has large hiatal hernia with organoaxial volvulus. This does pose a risk for recurrent episodes of gastric outlet obstruction. Will remove NG and start clear liquids. Advance diet as tolerated. (2) Hiatal hernia without gangrene or obstruction: Code(s): K44.9 - Diaphragmatic hernia without obstruction or gangrene Status: Chronic (3) Abnormal finding present on diagnostic imaging of uterus: Code(s): R93.89 - Abnormal findings on diagnostic imaging of other specified body structures Status: Acute Assessment and Plan: Ultrasound of pelvis also suspicious for abnormal uterine endometrium possibly endometrial cancer. Recommend gynecologic consultation. Subjective Subjective Date/Time Seen: 10/29/23 13:16 Interval history: No abdominal pain. Having bowel movements. No nausea or vomiting. Exam GI: Inspection: non-distended GI Palp: Yes Soft to palpation, No Tenderness to palpation present (GI) and No Guarding due to palpation present (GI) Auscultation: normal bowel sounds Objective Data Vital Signs Vital Signs: Vital Signs - 24 hr 10/28/23 14:00 10/28/23 16:00 10/28/23 21:08 Temperature 36.8 C 36.4 C L Pulse Rate 98 101 H 94 Respiratory Rate 12 13 Blood Pressure 148/82 H 138/76 Pulse Oximetry 97 95 Oxygen Delivery 10/28/23 20:00 10/28/23 20:00 10/29/23 00:00 Temperature Pulse Rate 97 101 H Respiratory Rate Blood Pressure Pulse Oximetry Oxygen Delivery Room Air 10/29/23 04:00 10/29/23 05:23 10/29/23 08:00 Temperature 36.9 C Pulse Rate 106 H 94 92 Respiratory Rate 13 Blood Pressure 140/71 Pulse Oximetry 93 Oxygen Delivery 10/29/23 12:00 Temperature Pulse Rate 89 Respiratory Rate Blood Pressure Pulse Oximetry Oxygen Delivery Intake/Output Intake/Output: Intake & Output 10/26/23 10/27/23 10/28/23 10/29/23 23:59 23:59 23:59 23:59 Intake Total 3010 1800 3275 Output Total 998 186 3223 Balance 2610 1150 1200 Meds/Results Medications: Active Medications Generic Name Dose Route Start Last Admin Trade Name Freq PRN Reason Stop Dose Admin Acetaminophen 650 mg 10/27/23 14:04 Acetaminophen 650 Mg Suppository RECTAL Q6H PRN Mild Pain (1-3) Enoxaparin Sodium 30 mg 10/27/23 21:00 10/29/23 09:16 Enoxaparin 30 Mg/0.3 Ml Syringe SUB-Q 30 mg Q12HR VIOLETA Administration Potassium Chloride/Dextrose/Sod Cl 1,000 mls @ 100 mls/hr 10/28/23 11:00 10/29/23 02:55 Kcl 40 Meq/D5ns IV CONT 100 mls/hr .Q10H VIOLETA Administration Morphine Sulfate 2 mg 10/27/23 08:20 10/29/23 11:05 Morphine Sulfate (*Crx) 2 Mg/Ml Inj IV PUSH 2 mg Q2HR PRN Administration Pain Rated 7-10 Ondansetron HCl 4 mg 10/27/23 09:10 10/29/23 09:18 Ondansetron Inj 4 Mg/2 Ml Vial IV PUSH 4 mg Q4H PRN Administration Nausea And Vomiting Pantoprazole Sodium 40 mg 10/28/23 09:00 10/29/23 09:15 Pantoprazole Sodium Iv 40 Mg Vial IV PUSH 40 mg QAM VIOLETA Administration Radiology Results: ITS Impressions Pelvis Ultrasound 10/27/23 16:16 IMPRESSION: 1. Thickened heterogeneous endometrium measuring 1.4 cm. The differential diagnosis includes endometrial hyperplasia, polyp and carcinoma. Biopsy is recommended. Venous Doppler Study 10/27/23 16:16 IMPRESSION: 1: No lower extremity deep venous thrombosis. Abdomen X-Ray 10/29/23 07:06 IMPRESSION: 1. Interval decompression of the previously gas distended large sliding-type hiatal hernia post placement of a nasogastric tube the distal tip which is coiled within the intrathoracic portion of the stomach. 2. Mild opacities at the left lower lung zone which could represent atelectasis or pneumoni
--- NOTE | 2023-10-29 14:00 | PCPTNOTE ---
Attempted to see patient this afternoon however patient eating lunch and states she has had to use the commode anytime she moves since having scans this morning. PT will continue to follow per plan of care.
--- NOTE | 2023-10-29 15:59 | PM.IMPN ---
Progress Note: A&P Assessment and Plan (1) Intractable nausea and vomiting: Code(s): R11.2 - Nausea with vomiting, unspecified Status: Acute Assessment and Plan: Seems to have resolved as of 10/28 10/28 clear liquids and advance as tolerated possibly home 10/29 (2) Essential (primary) hypertension: Code(s): I10 - Essential (primary) hypertension Status: Acute Assessment and Plan: 10/28 BP 141/72, resume carvedilol (3) Hiatal hernia without gangrene or obstruction: Code(s): K44.9 - Diaphragmatic hernia without obstruction or gangrene Status: Chronic Assessment and Plan: continue PPI (4) Status post total left knee replacement: Code(s): Z96.652 - Presence of left artificial knee joint Status: Acute Assessment and Plan: stable postop (5) Abnormal finding present on diagnostic imaging of uterus: Code(s): R93.89 - Abnormal findings on diagnostic imaging of other specified body structures Status: Acute Assessment and Plan: encouraged to follow-up as outpatient with machine stonecutter Subjective Date/time seen: 10/29/23 15:59 Interval history: denied nausea vomiting or diarrhea today per chest pain or shortness of breath. Tolerating clear liquids. Nasogastric tube removed this morning. Review of Systems Review of Systems: All systems reviewed & are unremarkable except as noted in HPI and below Exam Narrative: HEENT: sclerae nonicteric, pharyngeal mucosa pink and intact NECK: No JVD CHEST: Clear to auscultation. Normal effort. HEART: NL S1/S2, regular, no murmur ABDOMEN: BS+, soft, nontender, no mass, no bruits EXTREMITIES: No cyanosis, edema, or clubbing NEUROLOGIC: CN intact and symmetric to inspection. MUSCULOSKELETAL: Tone and strength symmetric. PSYCH: Alert. Oriented to person, place, and time. Objective Data Vital Signs Vital Signs: Vital Signs - 24 hr 10/28/23 16:00 10/28/23 21:08 10/28/23 20:00 Temperature 97.5 F L Pulse Rate 101 H 94 Respiratory Rate 13 Blood Pressure 138/76 Pulse Oximetry 95 Oxygen Delivery Room Air 10/28/23 20:00 10/29/23 00:00 10/29/23 04:00 Temperature Pulse Rate 97 101 H 106 H Respiratory Rate Blood Pressure Pulse Oximetry Oxygen Delivery 10/29/23 05:23 10/29/23 08:00 10/29/23 12:00 Temperature 98.4 F Pulse Rate 94 92 89 Respiratory Rate 13 Blood Pressure 140/71 Pulse Oximetry 93 Oxygen Delivery 10/29/23 14:00 Temperature 97.7 F Pulse Rate 91 Respiratory Rate 16 Blood Pressure 141/72 H Pulse Oximetry 96 Oxygen Delivery Intake/Output Intake/Output: Intake & Output 10/26/23 10/27/23 10/28/23 10/29/23 23:59 23:59 23:59 23:59 Intake Total 3010 1800 4275 Output Total 322 710 1789 Balance 2610 1150 2200 Meds/Results Medications: Active Medications Generic Name Dose Route Start Last Admin Trade Name Freq PRN Reason Stop Dose Admin Acetaminophen 650 mg 10/27/23 14:04 Acetaminophen 650 Mg Suppository RECTAL Q6H PRN Mild Pain (1-3) Enoxaparin Sodium 30 mg 10/27/23 21:00 10/29/23 09:16 Enoxaparin 30 Mg/0.3 Ml Syringe SUB-Q 30 mg Q12HR VIOLETA Administration Potassium Chloride/Dextrose/Sod Cl 1,000 mls @ 100 mls/hr 10/28/23 11:00 10/29/23 13:24 Kcl 40 Meq/D5ns IV CONT 100 mls/hr .Q10H VIOLETA Administration Morphine Sulfate 2 mg 10/27/23 08:20 10/29/23 11:05 Morphine Sulfate (*Crx) 2 Mg/Ml Inj IV PUSH 2 mg Q2HR PRN Administration Pain Rated 7-10 Ondansetron HCl 4 mg 10/27/23 09:10 10/29/23 09:18 Ondansetron Inj 4 Mg/2 Ml Vial IV PUSH 4 mg Q4H PRN Administration Nausea And Vomiting Pantoprazole Sodium 40 mg 10/28/23 09:00 10/29/23 09:15 Pantoprazole Sodium Iv 40 Mg Vial IV PUSH 40 mg QAM VIOLETA Administration Radiology Results: ITS Impressions Pelvis Ultrasound 10/27/23 16:16 IMPRESSION: 1. Thickened heterogeneous
[2023-10-29] MEDS: carvediloL 12.5 MG TABLET PO (21:22)
[2023-10-29] MEDS: MELATONIN 3 MG TABLET PO (21:22)
[2023-10-30 05:08] VITALS: BP 132/63; PULSE 82; RESP 12; TEMP 36.4; O2SAT 94
[2023-10-30 05:32] LABS: Hematocrit 27.6 % (37.0-47.0); Hemoglobin 8.7 g/dL (12.0-15.0); Mean Corpuscular HGB Conc 31.5 g/dl (32-36); Mean Corpuscular Hemoglobin 27.4 pg (26-34); Mean Corpuscular Volume 87.1 fl (80-100); Mean Platelet Volume 8.2 fl (7.4-10.4); Platelet Count Result 368 k/mm3 (150-375); Red Blood Count 3.17 M/mm3 (4.2-5.4); Red Cell Distribution Width 15.3 % (11.5-14.5); White Blood Count 10.5 K/mm3 (4.5-10.0)
[2023-10-30 05:39] LABS: Anion Gap 0 mmol/L (4-12); Blood Urea Nitrogen 4 mg/dL (7-17); Calcium 8.6 mg/dL (8.4-10.2); Carbon Dioxide 29 mmol/L (22-30); Chloride 108 mmol/L (98-107); Estimated Glomerular Filt Rate > 60; Glucose 113 mg/dL (65-110); Sodium 137 mmol/L (137-145)
[2023-10-30] MEDS: ONDANSETRON INJ 4 MG/2 ML VIAL IV PUSH (09:40)
[2023-10-30] MEDS: ENOXAPARIN 30 MG/0.3 ML SYRINGE SUB-Q (09:41)
[2023-10-30 09:42] VITALS: PULSE 82
[2023-10-30] MEDS: PANTOPRAZOLE 40 MG TABLET PO (09:42)
[2023-10-30] MEDS: carvediloL 25 MG TABLET PO (09:42)
--- NOTE | 2023-10-30 13:45 | PM.PNGS ---
Progress Note: A&P Assessment and Plan (1) Intractable nausea and vomiting: Code(s): R11.2 - Nausea with vomiting, unspecified Status: Acute Assessment and Plan: Continue bite size diet. Okay to discharge from surgical standpoint. Patient has large hiatal hernia with organoaxial volvulus. This does pose a risk for recurrent episodes of gastric outlet obstruction. Patient may follow-up with Dr. Velazquez in the office for any further testing and discussions of surgery. (2) Hiatal hernia without gangrene or obstruction: Code(s): K44.9 - Diaphragmatic hernia without obstruction or gangrene Status: Chronic (3) Abnormal finding present on diagnostic imaging of uterus: Code(s): R93.89 - Abnormal findings on diagnostic imaging of other specified body structures Status: Acute Assessment and Plan: Ultrasound of pelvis also suspicious for abnormal uterine endometrium possibly endometrial cancer. Recommend gynecologic consultation. Subjective Subjective Date/Time Seen: 10/30/23 13:45 Interval history: Tolerating solid diet. No vomiting or regurgitation. No abdominal pain. Bowels moving. Exam GI: Inspection: non-distended GI Palp: Yes Soft to palpation, No Tenderness to palpation present (GI) and No Guarding due to palpation present (GI) Auscultation: normal bowel sounds Objective Data Vital Signs Vital Signs: Vital Signs - 24 hr 10/29/23 14:00 10/29/23 21:18 10/29/23 21:22 Temperature 36.5 C 36.8 C Pulse Rate 91 63 94 Respiratory Rate 16 12 Blood Pressure 141/72 H 129/74 Pulse Oximetry 96 94 Oxygen Delivery 10/29/23 20:00 10/30/23 05:08 10/30/23 09:42 Temperature 36.4 C Pulse Rate 82 82 Respiratory Rate 12 Blood Pressure 132/63 Pulse Oximetry 94 Oxygen Delivery Room Air Intake/Output Intake/Output: Intake & Output 10/27/23 10/28/23 10/29/23 10/30/23 23:59 23:59 23:59 23:59 Intake Total 3010 1800 6010 1110 Output Total 885 879 6217 Balance 2610 1150 3935 1110 Meds/Results Medications: Active Medications Generic Name Dose Route Start Last Admin Trade Name Freq PRN Reason Stop Dose Admin Acetaminophen 650 mg 10/27/23 14:04 Acetaminophen 650 Mg Suppository RECTAL Q6H PRN Mild Pain (1-3) Carvedilol 12.5 mg 10/29/23 21:00 10/29/23 21:22 Carvedilol 12.5 Mg Tablet PO 12.5 mg HS VIOLETA Administration Carvedilol 25 mg 10/30/23 09:00 10/30/23 09:42 Carvedilol 25 Mg Tablet PO 25 mg QAM VIOLETA Administration Enoxaparin Sodium 30 mg 10/27/23 21:00 10/30/23 09:41 Enoxaparin 30 Mg/0.3 Ml Syringe SUB-Q 30 mg Q12HR VIOLETA Administration Potassium Chloride/Dextrose/Sod Cl 1,000 mls @ 100 mls/hr 10/28/23 11:00 10/29/23 22:51 Kcl 40 Meq/D5ns IV CONT 100 mls/hr .Q10H VIOLETA Administration Melatonin 3 mg 10/29/23 21:00 10/29/23 21:22 Melatonin 3 Mg Tablet PO 3 mg HS VIOLETA Administration Morphine Sulfate 2 mg 10/27/23 08:20 10/29/23 21:24 Morphine Sulfate (*Crx) 2 Mg/Ml Inj IV PUSH 2 mg Q2HR PRN Administration Pain Rated 7-10 Ondansetron HCl 4 mg 10/27/23 09:10 10/30/23 09:40 Ondansetron Inj 4 Mg/2 Ml Vial IV PUSH 4 mg Q4H PRN Administration Nausea And Vomiting Pantoprazole Sodium 40 mg 10/30/23 09:00 10/30/23 09:42 Pantoprazole 40 Mg Tablet PO 40 mg DAILY VIOLETA Administration Radiology Results: ITS Impressions Pelvis Ultrasound 10/27/23 16:16 IMPRESSION: 1. Thickened heterogeneous endometrium measuring 1.4 cm. The differential diagnosis includes endometrial hyperplasia, polyp and carcinoma. Biopsy is recommended. Venous Doppler Study 10/27/23 16:16 IMPRESSION: 1: No lower extremity deep venous thrombosis. Upper GI Series 10/29/23 10:28 IMPRESSION: 1. 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 Otherwise unremarkable upper GI and small bowel follow-through with no obstruction.
[2023-10-30 14:00] VITALS: BP 118/74; PULSE 74; RESP 18; TEMP 35.6; O2SAT 100
--- NOTE | 2023-10-30 14:32 | PM.DS ---
DS: Admitting Diagnosis Discharge Date 10/30/2023 Admitting Diagnosis intractable nausea with vomiting DS: Discharge Diagnosis Discharge Diagnosis (1) Intractable nausea and vomiting: Code(s): R11.2 - Nausea with vomiting, unspecified Status: Acute Assessment and Plan: Seems to have resolved as of 10/28 5/4 clear liquids and advance as tolerated 5/5 diet tolerated (2) Essential (primary) hypertension: Code(s): I10 - Essential (primary) hypertension Status: Acute Assessment and Plan: 10/28 BP 141/72, resumed carvedilol (3) Hiatal hernia without gangrene or obstruction: Code(s): K44.9 - Diaphragmatic hernia without obstruction or gangrene Status: Chronic Assessment and Plan: continue PPI (4) Status post total left knee replacement: Code(s): Z96.652 - Presence of left artificial knee joint Status: Acute Assessment and Plan: stable postop (5) Abnormal finding present on diagnostic imaging of uterus: Code(s): R93.89 - Abnormal findings on diagnostic imaging of other specified body structures Status: Acute Assessment and Plan: encouraged to follow-up as outpatient with rn gynecology DS: Summary Hospital Course Hospital Course: admitted for intractable nausea vomiting status post left total knee arthroplasty. Hemoglobin was 11.2 at admission, 8.7 at discharge after IV fluids. Chemistries were unremarkable. Imaging suggested ileus And also revealed a large sliding hiatal hernia and thickening of the uterine wall. Treated with nasogastric suction bowel rest and NG tube was removed 5/4:00 a.m.. She tolerated clear liquids. Bowels moved. Diet was advanced and she tolerated that well. She remained afebrile alert oriented during hospitalization. She was seen by orthopedic surgery, and rn gynecology consultants during hospitalization. Special Education Preschool Teacher recommended out and possible endometrial biopsy and Mrs. Rodriguez states she will comply with that. Time Spent with Patient Time attestation: Total time spent providing and/or coordinating discharge services: Exam Narrative: HEENT: sclerae nonicteric, pharyngeal mucosa pink and intact NECK: No JVD CHEST: Clear to auscultation. Normal effort. HEART: NL S1/S2, regular, no murmur ABDOMEN: BS+, soft, nontender, no mass, no bruits EXTREMITIES: No cyanosis, edema, or clubbing NEUROLOGIC: CN intact and symmetric to inspection. MUSCULOSKELETAL: Tone and strength symmetric. PSYCH: Alert. Oriented to person, place, and time. DS: Data Data Completed and Pending Labs on day of discharge: Labs from last 24 hours 10/30/23 04:58 WBC 10.5 H RBC 3.17 L Hgb 8.7 L Hct 27.6 L MCV 87.1 MCH 27.4 MCHC 31.5 L RDW 15.3 H Plt Count 368 MPV 8.2 Sodium 137 Potassium 4.0 Chloride 108 H Carbon Dioxide 29 Anion Gap 0 L BUN 4 L Creatinine 0.50 L Estim Creat Clear Calc Not Reportable Estimated GFR > 60 Glucose 113 H Calcium 8.6 Preliminary micro results at discharge 10/27/23 09:51 Blood Culture - Preliminary Blood 10/27/23 09:38 Blood Culture - Preliminary Blood Discharge Plan Discharge Consulting providers: Brooks Arensa; Twin Velazquez; Gunnar Bolden Discharging Clinician: Reuben Natarajan Patient Disposition: Home, Self-Care Activity: as tolerated Diet: regular Stand Alone Forms: General Discharge Information Follow-up/Referrals: Gail Peña APRN [Primary Care Provider] - Call for Appointment Gunnar Bolden MD [Physician] - Call for Appointment Twin Velazquez MD [Physician] - Call for Appointment Brooks Arenas MD [Physician] - Keep Reg. Scheduled Appt. Discharge Medications: Continued cholecalciferol (vitamin D3) 25 mcg (1,000 unit) capsule 25 mcg PO DAILY Qty: 90 1RF pantoprazole 40 mg tablet,delayed release (DR/EC) 40 mg PO DAILY acetaminophen 500 mg Tablet 1,000 mg PO Q6H Qty: 120 0RF Eliquis
== END 2023-10-30 15:55 | disposition home or self-care (01) | DRG 390 ==
LOC: ANHED 05:22 → ANH3MEDSUR 06:15
PROVIDERS: General Practice; Surgery; Admitting Provider Internal Medicine; Emergency Provider Emergency Medicine; PCP Nurse Practitioner Family; Visit Provider Internal Medicine
DX: K56.7 Ileus, unspecified (principal); K44.9 Diaphragmatic hernia without obstruction or gangrene; Z96.652 Presence of left artificial knee joint; D50.9 Iron deficiency anemia, unspecified; D72.829 Elevated white blood cell count, unspecified; E78.5 Hyperlipidemia, unspecified; F32.A Depression, unspecified; H35.30 Unspecified macular degeneration; H54.7 Unspecified visual loss; I10 Essential (primary) hypertension; K21.9 Gastro-esophageal reflux disease without esophagitis; M51.36 Other intervertebral disc degeneration, lumbar region; Z87.891 Personal history of nicotine dependence; Z79.01 Long term (current) use of anticoagulants; Z86.16 Personal history of COVID-19
CPT/HCPCS: 36415; 71045; 74018; 74177; 74240; 74248; 76856; 80048; 80053; 81001; 82948; 83605; 83690; 83735; 84145; 84484; 85025; 85027; 85610; 85730; 87040; 87493; 93005; 93971; 96361; 96365; 96366; 96372; 96374; 96375; 96376; 97110; 97116; 97161; 97530; 99284; 99285; A9270; C9113; G0378; J1170; J1650; J2060; J2212; J2270; J2405; J3480; J7030; J7120; Q9967

== ENCOUNTER 2024-01-12 01:27 | Day surgery (SDC) | payer MEDICARE, SELFPAY ==
[2024-01-09 14:33] VITALS: BMI 29.1
--- NOTE | 2024-01-09 14:43 | PC.NURSE ---
Report to the Outpatient Waiting Room, entrance under the green pavilion located off [facility], at time 0800_ on date 01/12/24__. Planned Procedure Time: _1000__. Time changes happen often and if your time is changed the preop area will call you the afternoon before. - You and your visitor will be asked to self-screen and do not enter if you have any COVID symptoms. - A mask is optional within the hospital at this time. Patients may have clear liquids (water, carbonated beverages, clear teas, apple juice) until 3 hours prior to surgery with a maximum of 20 ounces. - No food from midnight until time of surgery - Infants may have breast milk until 4 hours before surgery, infant formula 6 hours prior to surgery. - Children will be allowed to drink immediately following surgery. If applicable, please bring a bottle or sippy cup to assist with drinking. Juice, water, soda, and popsicles are readily available. For infants on formula, please bring formula the day of surgery. Pacifiers are allowed. Take the following medications with a SIP of water the morning of surgery: _BUSPIRONE, CARVEDILOL, DULOXETINE, PREGABALIN__, MAY TAKE PAIN OR NAUSEA MEDICATION IF NEEDED. USE INHALER IF NEEDED DO NOT STOP ANY OF YOUR OTHER PRESCRIPTION MEDICATIONS PRIOR TO SURGERY ?EXCEPT THE FOLLOWING Medications to discontinue per physician NONE Date to take last dose Please no make-up, nail ukrainian, hairspray, perfume, deodorant, or body powder the day of surgery. No jewelry (including any body piercings) or valuables the day of surgery, leave them at home. Please take a shower or bath the night before, or the morning of, surgery with an antibacterial soap. Wear comfortable, loose fitting clothing. Children are encouraged to wear pajamas. - Jewelry must be removed prior to entering the operating room. Rings and piercings that are not removed may be cut off. - The hospital will not accept responsibility for valuables. - Please leave all valuables, including medications, at home the day of surgery. If you are going home after surgery, a licensed drive away driver must drive you home. - NO public transportation without another adult if you receive anesthesia. - We recommend that an adult stay with you for 24 hours following discharge. - We also recommend that you do not drive, make important decision, drink alcoholic beverages, or take any drugs that were not prescribed by your health care provider for at least 24 hours after your discharge time. For Pediatric surgeries, we recommend two adults accompany the child home. Follow any additional instructions given to you from your surgeon. If you or anyone in your household have experienced Covid symptoms in the past week, please notify your surgeon or the nurse liaison at the phone number below for possible testing. Telephone instructions given to __PATIENT__and asked if any additional questions and then verbalized understanding. Patient advised to call surgeon office or pre surgery nurse liaison [phone] if any additional questions.
--- NOTE | 2024-01-10 17:10 | PM.IMHP ---
H&P: HPI History of Present Illness Date/Time: 01/10/24 17:10 78-year-old female 5 para 2031 presents for evaluation of endometrial thickening noted on incidental pelvic ultrasound. Was admitted the hospital last month with nausea vomiting and as part of that evaluation underwent ultrasound which did show thickened endometrial cavity with endometrial fluid. She has not any bleeding or pain specific to this abnormality though I have discussed with her the need for visual exam/ biopsy. 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 Other Family history of cardiovascular disease Social History Social History Smoking packs per day: 1 Smoking cigarettes per day: 20.0 Years smoked: 13 Smoking pack-years: 13.00 Smoking status: Never smoker Tobacco type: cigarettes Second hand tobacco smoke exposure: No Smoking end date: 10/05/87 Additional smoking assessment comments: QUIT 1987 Alcohol intake: never Substance use: never Substance use type: does not use Do You Feel Safe in your Home?: Yes Lack of Transportation: No Lack of Food: Never True Current Housing: I Have Housing Concerned About Future Housing: No Difficulty Paying Gas/Electric Bills: No Difficulty Paying for Meds: No Currently Unemployed: No Education: Trade/Vocational Certificate Difficulty w/ Childcare or Family Care: No Living arrangements: with family Additional living arrangements comments: Occupation/Education: retired Gender identity (if verbalized by the patient): Female Sexual Orientation (if Verbalized by the Patient): Straight or Heterosexual Spiritual care concerns: No Meds Home Medications and Allergies Home Medications Medication Instructions Recorded Confirmed Type albuterol sulfate 90 mcg/actuation 2 inh inhalation Q4-6H PRN 08/04/23 01/09/24 Rx aerosol inhaler (ProAir HFA) shortness of breath or wheezing #18 grams buspirone 7.5 mg tablet 7.5 mg PO BID #180 tabs 08/15/23 01/09/24 Rx duloxetine 60 mg capsule,delayed 60 mg PO BID #180 caps 09/05/23 01/09/24 Rx release ondansetron 4 mg disintegrating 4 mg PO Q6H PRN nausea and 10/31/23 01/09/24 Rx tablet vomiting #30 tabs rosuvastatin 5 mg tablet 5 mg PO DAILY 11/18/23 01/09/24 History carvedilol 12.5 mg tablet 12.5 mg PO TID #90 tabs 11/29/23 01/09/24 Rx aspirin 81 mg capsule 81 mg PO DAILY 12/14/23 01/09/24 History pantoprazole 40 mg tablet,delayed See Rx Instructions .Route 12/26/23 01/09/24 Rx release .COMPLEX #90 tabs pregabalin 50 mg capsule 50 mg PO BID #60 caps 12/27/23 01/09/24 Rx hydrocodone 10 mg-acetaminophen 1 tablet PO Q8H pain #90 tabs 01/02/24 01/09/24 Rx 325 mg tablet melatonin 10 mg capsule 3 mg PO QHS 01/09/24 01/09/24 History cholecalciferol (vitamin D3) 25 25 mcg PO DAILY #90 caps 01/10/24 Rx mcg (1,000 unit) capsule Allergies Allergy/AdvReac Type Severity Reaction Status Date / T
[2024-01-12 08:23] LABS: Hematocrit 28.3 % (37.0-47.0); Mean Corpuscular HGB Conc 28.3 g/dl (32-36); Mean Corpuscular Hemoglobin 21.6 pg (26-34); Mean Corpuscular Volume 76.3 fl (80-100); Mean Platelet Volume 8.9 fl (7.4-10.4); Platelet Count Result 340 k/mm3 (150-375); Red Blood Count 3.71 M/mm3 (4.2-5.4); Red Cell Distribution Width 16.2 % (11.5-14.5); White Blood Count 6.8 K/mm3 (4.5-10.0)
[2024-01-12 08:30] VITALS: BP 122/66; PULSE 76; RESP 14; TEMP 36.8; O2SAT 98
[2024-01-12] MEDS: ACETAMINOPHEN 500 MG TABLET 1000 MG PO (08:30)
[2024-01-12] MEDS: LACTATED RINGERS 1,000 ML 30 ML IV CONT (08:30)
--- NOTE | 2024-01-12 08:55 | WPDHPUPDATE1 ---
History and Physical Update Update Date/Time: 01/12/24 08:55 History and Physical has been reviewed, including an updated exam of the patient. There are NO changes in the patient's condition. Risks, benefits, and alternatives have been discussed and questions answered. Patient agrees to proceed with procedure.
--- NOTE | 2024-01-12 09:44 | WPDANESEPPF ---
Anes - Initial Pre Proc Eval Procedure: Operation Date: 01/12/24 10:00 Proposed Procedures p Hysteroscopy Dilation and Curettage - Gunnar Bolden MD Date/Time: 01/12/24 09:44 Surgeon: Gunnar Bolden MD Pre Op Diagnosis: Post Menopausal Bleeding Patient Data Age: 78 Gender: F Height: 1.73 m Weight: 87 kg Allergies Allergy/AdvReac Type Severity Reaction Status Date / Time meperidine Allergy Severe ITCHY Verified 01/09/24 14:28 venom-honey bee Allergy Severe Swelling Verified 01/09/24 14:28 adhesive Allergy Mild TAPE= Verified 01/09/24 14:28 BLISTERS Home Medications Medication Instructions Recorded Confirmed Type albuterol sulfate 90 mcg/actuation 2 inh inhalation Q4-6H PRN 08/04/23 01/09/24 Rx aerosol inhaler (ProAir HFA) shortness of breath or wheezing #18 grams buspirone 7.5 mg tablet 7.5 mg PO BID #180 tabs 08/15/23 01/09/24 Rx duloxetine 60 mg capsule,delayed 60 mg PO BID #180 caps 09/05/23 01/09/24 Rx release ondansetron 4 mg disintegrating 4 mg PO Q6H PRN nausea and 10/31/23 01/09/24 Rx tablet vomiting #30 tabs rosuvastatin 5 mg tablet 5 mg PO DAILY 11/18/23 01/09/24 History carvedilol 12.5 mg tablet 12.5 mg PO TID #90 tabs 11/29/23 01/09/24 Rx aspirin 81 mg capsule 81 mg PO DAILY 12/14/23 01/09/24 History pantoprazole 40 mg tablet,delayed See Rx Instructions .Route 12/26/23 01/09/24 Rx release .COMPLEX #90 tabs pregabalin 50 mg capsule 50 mg PO BID #60 caps 12/27/23 01/09/24 Rx hydrocodone 10 mg-acetaminophen 1 tablet PO Q8H pain #90 tabs 01/02/24 01/09/24 Rx 325 mg tablet melatonin 10 mg capsule 3 mg PO QHS 01/09/24 01/09/24 History cholecalciferol (vitamin D3) 25 25 mcg PO DAILY #90 caps 01/10/24 Rx mcg (1,000 unit) capsule ferrous sulfate 325 mg (65 mg 325 mg PO DAILY #90 tabs 01/11/24 Rx iron) tablet Laboratory Tests 01/12/24 08:16 WBC 6.8 K/mm3 (4.5-10.0) RBC 3.71 L M/mm3 (4.2-5.4) Hgb 8.0 L g/dL (12.0-15.0) Hct 28.3 L % (37.0-47.0) MCV 76.3 L fl (80-100) MCH 21.6 L pg (26-34) MCHC 28.3 L g/dl (32-36) RDW 16.2 H % (11.5-14.5) Plt Count 340 k/mm3 (150-375) MPV 8.9 fl (7.4-10.4) Patient hx anesthesia problems: none Family hx anesthesia problems: none Results Review: All pre-operative results and documents have been reviewed as part of the pre-operative evaluation. 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 Other Family history of cardiovascular disease Social History Social History Smoking packs per day: 1 Smoking cigarettes per day: 20.0 Years smoked: 13 Smoking pack-years: 13.00 Smoking status: Never smoker Tobacco type: cigarettes Second hand tobacco smoke exposure: No Smoking end date: 10/05/87 Additional smoking assessment comments: QUIT 1987 Alcohol intake: never Substance use: never Substance use type: does not use Do You Feel Safe in your Home?: Yes Lack of Transportation: No Lack of Food: Never True Current Housing: I Have Housing Concerned About Future Chuck
[2024-01-12 10:30] VITALS: BP 102/62; PULSE 69; RESP 12; O2SAT 100
--- NOTE | 2024-01-12 10:43 | W.PM.PROC2 ---
Procedure Note - Detailed Date of Procedure 01/12/24 Pre-op Diagnosis 1. Thickened endometrium on ultrasound 2. Endometrial fluid on ultrasound Post-op Diagnosis Same Procedure Performed 1. Hysteroscopy with uterine curettings Surgeon Gunnar Bolden MD Anesthesia MAC Findings Multiple polypoid appearing lesions in the endometrial cavity Description of Procedure Patient was prepped and draped in usual manner for this procedure. Cervix was dilated to allow the hysteroscope be placed. Hysteroscopic exam revealed findings as noted above. Multiple polypoid appearing lesions were noted, under which there did appear to be atrophic endometrium. These polyps did not appear hypervascular or fleshy, were fluid filled with minimal vascularity. These polyps removed under direct visualization with no bleeding. At the termination of the procedure patient was sent to recovery room stable condition. Estimated Blood Loss 10 Drains No Packing No Pathology Yes Complications No immediate complications Condition Stable Disposition PACU [facility] Billing Surgery - Charge Forward: Surgery Billing
[2024-01-12 10:45] VITALS: BP 107/64; PULSE 69; RESP 13; O2SAT 96
[2024-01-12 11:00] VITALS: BP 106/68; PULSE 69; RESP 16; O2SAT 96
[2024-01-12 11:20] VITALS: BP 112/61; PULSE 69; RESP 14
[2024-01-12 11:40] VITALS: BP 115/69; PULSE 69; RESP 16
== END 2024-01-12 11:48 | disposition home or self-care (01) ==
PROVIDERS: PCP Nurse Practitioner Family; Visit Provider Obstetrics & Gynecology
PROC: 0U5B8ZZ Destruction of Endometrium, Via Natural or Artificial Opening Endoscopic (ICD-10-PCS; CPT 58563; principal; 2024-01-12 10:00)
DX: R93.89 Abnormal findings on diagnostic imaging of other specified body structures (principal); N85.9 Noninflammatory disorder of uterus, unspecified; I10 Essential (primary) hypertension; E78.49 Other hyperlipidemia; K21.9 Gastro-esophageal reflux disease without esophagitis; Z96.652 Presence of left artificial knee joint; F32.A Depression, unspecified
CPT/HCPCS: 58558; 36415; 85027; 88305; A9270; J1100; J2405; J2704; J3010; J7120

== ENCOUNTER 2024-01-19 14:37 | Emergency (ER) | payer MEDICARE, SELFPAY ==
[2024-01-19 14:46] VITALS: BP 137/93; PULSE 94; RESP 18; TEMP 36.6; O2SAT 100
[2024-01-19 15:35] LABS: Basophils Percent Auto 0.4 % (0.2-1.2); Eosinophils Absolute Auto 0.2 K/mm3 (0-0.3); Eosinophils Percent Auto 3.4 % (0-4.4); Hematocrit 26.2 % (37.0-47.0); Hemoglobin 7.5 g/dL (12.0-15.0); Immature Granulocyte Absolute 0.03 K/mm3 (0.00-0.031); Immature Granulocyte Percent A 0.5 % (0-0.5); Lymphocytes Absolute Auto 1.15 K/mm3 (0.9-3.2); Lymphocytes Percent Auto 20.5 % (18.3-44.2); Mean Corpuscular HGB Conc 28.6 g/dl (32-36); Mean Corpuscular Hemoglobin 21.2 pg (26-34); Mean Corpuscular Volume 74.2 fl (80-100); Mean Platelet Volume 8.6 fl (7.4-10.4); Monocytes Absolute Auto 0.6 K/mm3 (0.1-0.6); Monocytes Percent Auto 10.7 % (2.6-8.5); Neutrophils Absolute Auto 3.6 K/mm3 (1.3-6.7); Neutrophils Percent Auto 64.5 % (45.5-73.1); Platelet Count Result 272 k/mm3 (150-375); Red Blood Count 3.53 M/mm3 (4.2-5.4); Red Cell Distribution Width 16.7 % (11.5-14.5); White Blood Count 5.6 K/mm3 (4.5-10.0)
[2024-01-19 15:42] LABS: Alanine Aminotransferase 13 U/L (6-35); Albumin Level 4.1 g/dL (3.5-5.1); Alkaline Phosphatase 49 U/L (38-126); Anion Gap 7 mmol/L (4-12); Aspartate Amino Transferase 31 U/L (14-36); Bilirubin,Total 0.5 mg/dL (0.2-1.3); Blood Urea Nitrogen 14 mg/dL (7-17); Calcium 8.7 mg/dL (8.4-10.2); Carbon Dioxide 29 mmol/L (22-30); Chloride 101 mmol/L (98-107); Estimated CRCL calculation 52 ml/min; Estimated Glomerular Filt Rate > 60; Glucose 123 mg/dL (65-110); Potassium 4.3 mmol/L (3.4-5.0); Sodium 137 mmol/L (137-145)
[2024-01-19 15:47] LABS: Anisocytosis 1+; Hypochromasia 1+; Microcytosis 1+ (NORMAL); Ovalocytes 1+; Platelet Estimate Adequate (Adequate); Poikilocytosis 1+; Schistocytes None Seen
--- NOTE | 2024-01-19 16:07 | ED.GENADULT ---
HPI - General Adult General Chief complaint: Recheck/Abnormal Lab/Rx Stated complaint: low hgb Time Seen by Provider: 01/19/24 15:12 History of Present Illness HPI narrative: 78-year-old female presented emergency department for evaluation for anemia with associated lightheaded dizziness. Does have a history of anemia and patient previously used to get iron infusions. Patient does not take iron pills because of issues with constipation. Patient denies any vaginal bleeding, denies any hematemesis and denies any dark tarry stool. Patient was referred to the emergency department by her primary care physician. Related Data Home Medications Medication Instructions Recorded Confirmed rosuvastatin 5 mg tablet 5 mg PO DAILY 11/18/23 01/17/24 aspirin 81 mg capsule 81 mg PO DAILY 12/14/23 01/17/24 melatonin 10 mg capsule 3 mg PO QHS 01/09/24 01/17/24 Allergies Allergy/AdvReac Type Severity Reaction Status Date / Time meperidine Allergy Severe ITCHY Verified 01/17/24 13:47 venom-honey bee Allergy Severe Swelling Verified 01/17/24 13:47 adhesive Allergy Mild TAPE= Verified 01/17/24 13:47 BLISTERS Review of Systems Review of Systems: All systems reviewed & are unremarkable except as noted in HPI and below PMFSH Past Medical History Medical History (Updated 01/19/24 @ 16:22 by Alf Murphy MD) Abnormal CT of the abdomen Abnormal finding present on diagnostic imaging of uterus Anemia COVID-19 Depression Essential (primary) hypertension Fluid in endometrial cavity Hiatal hernia without gangrene or obstruction Ileus Intractable nausea and vomiting Iron deficiency anemia Leukocytosis Lumbago Lumbar degenerative disc disease 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 Osteoarthritis of left knee Other hyperlipidemia Paraesophageal hiatal hernia Peripheral neuropathic pain Reactive airway disease without complication Visual field defect Surgical History Surgical History (Updated 01/17/24 @ 16:07 by Gail Peña APRN) H/O shoulder surgery right History of abdominoplasty History of ankle surgery right History of hysteroscopy (01/12/24) Hysteroscopy with uterine curettings / benign polyp on pathology, History of left knee replacement 10/20/23 History of total knee replacement History of total left knee replacement Family History Family History Father No problems noted. Other Family history of cardiovascular disease Social History Social History Smoking packs per day: 1 Smoking cigarettes per day: 20.0 Years smoked: 13 Smoking pack-years: 13.00 Smoking status: Never smoker Tobacco type: cigarettes Second hand tobacco smoke exposure: No Smoking end date: 10/05/87 Additional smoking assessment comments: QUIT 1987 Alcohol intake: never Substance use: never Substance use type: does not use Do You Feel Safe in your Home?: Yes Lack of Transportation: No Lack of Food: Never True Current Housing: I Have Housing Concerned About Future Housing: No Difficulty Paying Gas/Electric Bills: No Difficulty Paying for Meds: No Currently Unemployed: No Education: Trade/Vocational Certificate Difficulty w/ Childcare or Family Care: No Living arrangements: with family Additional living arrangements comments: Occupation/Education: retired Gender identity (if verbalized by the patient): Female Sexual Orientation (if Verbalized by the Patient): Straight or Heterosexual Spiritual care concerns: No Exam Narrative: APPEARANCE: Well appearing, no pain, no distress, well-nourished. HEAD: normocephalic, atraumatic. EYES: PERRLA/EOMI, conjunctivae clear. NOSE: Normal no drainage EARS:TMS clear with good light reflex. THROAT: Pharynx clear, no exudate. NECK: Supple. No adenopathy, no masses. RESPIRATORY: Airway patent, respirat
[2024-01-19 16:27] VITALS: BP 140/88; PULSE 84; RESP 16; O2SAT 99
[2024-01-19 16:58] LABS: INR 1.1; Partial Thromboplastin Time 34.8 Seconds (22.3-36.8); Prothrombin Time 14.1 Seconds (11.1-14.7)
[2024-01-19 17:11] LABS: Immature Reticulocyte Fraction 33.6 % (3.0-15.9); Reticulocyte Hemoglobin Conten 16.6 pg (28.2-36.6); Reticulocyte Percent 1.75 % (0.7-4.3); Reticulocytes Absolute 0.06 10^6/uL (0.02-0.10)
== END 2024-01-19 16:34 | disposition home or self-care (01) ==
PROVIDERS: Emergency Provider Emergency Medicine; PCP Nurse Practitioner Family
DX: D64.9 Anemia, unspecified (principal); I10 Essential (primary) hypertension; E78.5 Hyperlipidemia, unspecified; F17.210 Nicotine dependence, cigarettes, uncomplicated
CPT/HCPCS: 36415; 80053; 85025; 85046; 85610; 85730; 86850; 86880; 86900; 86901; 99283

== ENCOUNTER 2024-01-26 14:05 | Outpatient (CLI) | payer MEDICARE, SELFPAY ==
[2024-01-26 14:30] LABS: Basophils Percent Auto 0.3 % (0.2-1.2); Eosinophils Absolute Auto 0.3 K/mm3 (0-0.3); Hemoglobin 7.5 g/dL (12.0-15.0); Immature Granulocyte Absolute 0.03 K/mm3 (0.00-0.031); Immature Granulocyte Percent A 0.3 % (0-0.5); Lymphocytes Absolute Auto 1.57 K/mm3 (0.9-3.2); Lymphocytes Percent Auto 18.2 % (18.3-44.2); Mean Corpuscular HGB Conc 28.8 g/dl (32-36); Mean Corpuscular Hemoglobin 20.9 pg (26-34); Mean Corpuscular Volume 72.4 fl (80-100); Mean Platelet Volume 8.6 fl (7.4-10.4); Monocytes Absolute Auto 0.8 K/mm3 (0.1-0.6); Monocytes Percent Auto 8.7 % (2.6-8.5); Neutrophils Percent Auto 69.5 % (45.5-73.1); Platelet Count Result 258 k/mm3 (150-375); Red Blood Count 3.59 M/mm3 (4.2-5.4); Red Cell Distribution Width 16.5 % (11.5-14.5); White Blood Count 8.7 K/mm3 (4.5-10.0)
[2024-01-26 14:36] LABS: Anisocytosis 1+; Hypochromasia 2+; Microcytosis 1+ (NORMAL); Ovalocytes 1+; Platelet Estimate Adequate (Adequate); Poikilocytosis 1+; Schistocytes None Seen
[2024-01-26 16:34] LABS: Anion Gap 8 mmol/L (4-12); Blood Urea Nitrogen 13 mg/dL (7-17); Calcium 9.1 mg/dL (8.4-10.2); Carbon Dioxide 31 mmol/L (22-30); Chloride 99 mmol/L (98-107); Estimated Glomerular Filt Rate > 60; Glucose 95 mg/dL (65-110); Potassium 4.3 mmol/L (3.4-5.0); Sodium 138 mmol/L (137-145)
[2024-01-26 16:47] LABS: Iron 17 ug/dL (37-170); Percent Iron Saturation 4 % (20-50)
[2024-01-26 17:13] LABS: Ferritin 7.54 ng/mL (11.1-264)
[2024-01-26 17:37] LABS: Folic Acid 10.7 ng/mL (2.76->20)
[2024-01-29 09:24] LABS: Methylmalonic Acid 208 nmol/L (69-390)
== END 2024-01-26 14:06 | disposition home or self-care (01) ==
LOC: ANHLAB 14:07
PROVIDERS: PCP Nurse Practitioner Family; Visit Provider Internal Medicine Hematology & Oncology
DX: D64.9 Anemia, unspecified (principal)
CPT/HCPCS: 36415; 80048; 82607; 82728; 82746; 83540; 83550; 83921; 85025